=== PATIENT | female | born 1950 | race Caucasian/White ===

== ENCOUNTER 2019-07-04 07:45 | Emergency (ER) | payer MEDICARE, BC, SELFPAY ==
[2019-07-04 07:51] VITALS: BP 113/95; PULSE 111; RESP 18; TEMP 36.5; O2SAT 96
[2019-07-04 08:07] LABS: Bilirubin Negative (Negative); Blood Negative (Negative); Clarity Clear (Clear); Glucose Negative (Negative); Ketones Trace mg/dL (Negative); Leukocyte Esterase Trace (Negative); Nitrite Negative (Negative); Specific Gravity 1.025 (1.005-1.025); Urobilinogen 0.2 EU/dL (Up TO 0.2)
--- NOTE | 2019-07-04 08:13 | W.ED.GENAD ---
Discharge Plan Disposition Patient Disposition: HOME Condition: Good Discharge Details Chief Complaint: Urinary Clinical Impression: Acute UTI Primary Care Provider: Mariza Neal V ED Provider: Nolberto Rivers Home Meds and New Rx's Prescriptions: New cephalexin [Keflex] 500 mg capsule 500 mg PO QID 7 Days Qty: 28 RF: 0 No Action fexofenadine-pseudoephedrine [Shania-D 12 Hour] 60-120 mg Tablet Extended Release 12 Hr 1 tab PO Q12H PRNRF: 0 Prilosec OTC 20 MG tablet,delayed release (DR/EC) 1 tab PO DAILY RF: 0 Discharge Instructions Instructions: Urinary Tract Infection in Women (ED) Additional Instructions: At this time you have evidence of a mild urinary tract infection. Please take antibiotic as directed. Please drink plenty of fluids, and take cranberry supplements. If you notice any worsening of your symptoms, or any new symptoms such as vomiting, diarrhea, fever, chills, shortness of breath, chest pain, numbness, weakness, or fainting , please return immediately to the emergency department for reevaluation. Please follow up with your primary care provider as soon as possible for reassessment and reevaluation. As always, it was a pleasure participating in your medical care today. Referrals: Mariza Neal MD [Primary Care Provider] - Medical Decision Making 69-year-old female with a past medical history of reflux who presents today for evaluation of urinary frequency. Patient states that last day or 2 she has had increasing urinary frequency, very mild burning. She denies any fever or chills. Patient does admit to recently falling yesterday on her buttock, she does have some mild pain and soreness there but in in her back, she has been taking Aleve and ibuprofen this is been resolving the pain. She denies any numbness tingling or weakness. She denies any leg pain. She denies any hematuria or other complaints. She has had urinary tract infections before and states that this feels identical to that. No other modifying factors. She is not taking any antibiotics. Physical exam demonstrates no significant abnormalities. Signs and symptoms inconsistent with cauda equina syndrome and since clinically consistent with mild back and buttock contusion. No indication for imaging at this time. Symptoms in regards to her urinary complaints appear consistent with mild urinary tract infection. No flank or CVA tenderness suggestive of pyelonephritis. No fever or chills. Initially the patient's heart rate was 111 when she first walked in. She states that she has not slept all night and blames it on this. I did offer IV work-up and IV fluids, however the patient declined this, on repeat vital sign assessment moments later her heart rate went down easily below 100. Pending UA at this time. 8:40 AM Patient is urinalysis is returned, positive leukoesterase, white cells mild. Symptoms consistent with mild UTI. Inconsistent with acute appendicitis, or other abnormality. Vital signs have normalized. No indication for further testing or imaging at this time. Patient feeling well. Will give Keflex for UTI. Will give a bottle here and prescription for home use. Discussed red flags which to return. I have extensively reviewed the treatment plan and discharge instructions with the patient. I have addressed all patient concerns at this time. The patient was made aware of what symptoms to monitor for that would warrant a return to the emergency department. Discussed the plan with the patient, they demonstrate verbal understanding and agreement with our assessment and plan at this time. HPI General Date/Time Provider Initiated Documentation: 07/04/19 07:54. HPI Narrative: 69-year-old female with a past medical history of reflux who presents today for evaluation of urinary frequency. Patient states that last day or 2 she has had increasing urinary frequency, very mild burning. She denies any fever or chills. Patient does admit to recently falling yesterday on her buttock, she does have some mild pain and soreness there but in in her back, she has been taking Aleve and ibuprofen this is been resolving the pain. She denies any numbness tingling or weakness. She denies any leg pain. She denies any hematuria or other complaints. She has had urinary tract infections before and states that this feels identical to that. No other modifying factors. She is not taking any antibiotics. Related Data Home Medications Medication Instructions Recorded Confirmed omeprazole magnesium [PriLOSEC Otc] 1 tab PO DAILY 08/06/17 07/04/19 cephalexin [Keflex] 500 mg PO QID 7 Days #28 cap 07/04/19 fexofenadine-pseudoephedrine 1 tab PO Q12H PRN 04/23/20 04/23/20 [Shania-D 12 Hour] Previous Rx's Medication Instructions Recorded cephalexin [Keflex] 500 mg PO QID 7 Days #28 cap 07/04/19 Allergies Allergy/AdvReac Type Severity Reaction Status Date / Time morphine AdvReac Mild Nausea Unverified 07/04/19 08:02 General Stated Complaint: Urinary JOSÉ ANTONIO: 3 Review of Systems All systems reviewed & are unremarkable except as noted in HPI and below PFSH Social History Smoking/Tobacco Use Status: Never Alcohol Intake: never Drug use: Never Do you feel safe at home: Yes Do you feel safe in your relationship?: Yes Exam Narrative Exam Narrative: 1.Const: Well-nourished, Well-developed, appearing stated age 2.Eyes: PERRL, no conjunctival injection, and symmetrical lids. 3.ENT: Atraumatic external nose and ears. Dry MM. Neck: Symmetric, trachea midline, No thyromegaly. 4.CVS: +S1/S2, No murmurs or gallops. Peripheral pulses 2+ and equal in all extremities. Brisk capillary refill in all extremities. 5.RESP: Unlabored respiratory effort. Clear to auscultation bilaterally. No wheezes rales or rhonchi 6.GI: Soft, Nontender/Nondistended, No hepatosplenomegaly. No guarding or rebound. No flank or CVA tenderness. 7.MSK: Normocephalic/Atraumatic, Extremities w/o deformity or ttp No cyanosis or clubbing, Normal movement of all extremities. No midline tenderness to palpation over the CTLS spine. Normal ROM in flexion, extension, side bend, and rotation. Patient has +5 out of 5 strength in the lower extremities in dorsiflexion and plantarflexion, knee flexion and extension, hip flexion and extension. Normal strength for dorsiflexion and plantar flexion of the great toe bilaterally. There is +2 over 2 dorsalis pedis pulses bilaterally. There is normal sensation to the skin with light touch at the foot, knee, and hip. Normal saddle sensation. Good sensation over the deep sural nerve area bilaterally. Rectal exam deferred. Reflexes are +2 over 4 in the patellar reflex bilaterally. +5 out of 5 strength in the medial, ulnar, radial nerve distribution bilaterally in the hands as well as intact light touch sensation to these dermatomes on the hands 8.Skin: Warm, Dry. No rashes or lesions. 9.Neuro: legal activity adjudicator II-XII grossly intact. Sensation grossly intact, no focal neurologic deficits. 10.Psych: (AAO) x3. Appropriate mood and affect Course Vital Signs Vital signs: Vital Signs Temperature 36.5 C 07/04/19 07:51 Pulse 111 H 07/04/19 07:51 Respiratory Rate 18 07/04/19 07:51 Blood Pressure 113/95 H 07/04/19 07:51 Pulse Oximetry 96 07/04/19 07:51 Temperature 36.5 C 07/04/19 07:51 Temperature Source Temporal Artery Scan 07/04/19 07:51 Pulse 111 H 07/04/19 07:51 Respiratory Rate 18 07/04/19 07:51 Respiratory Effort Non-Labored 07/04/19 08:01 Blood Pressure 113/95 H 07/04/19 07:51 Blood Pressure Position Sitting 07/04/19 07:51 Pulse Oximetry 96 07/04/19 07:51 Oxygen Delivery Method Room Air 07/04/19 07:51 Oxygen Flow Rate 0 07/04/19 07:51 Pain Level 6 07/04/19 08:02
[2019-07-04 08:16] VITALS: PULSE 94; O2SAT 96
[2019-07-04 08:24] LABS: Bacteria Rare HPF (Negative); C & S Indicated? Yes; Casts Negative LPF (Negative); Crystals Negative HPF (Negative); Epithelial Cells Rare HPF (Negative); Mucus Negative (Negative); Other Cells Negative (Negative); RBC 0-2 HPF (0-2); WBC 0-2 HPF (0-5)
[2019-07-04] MEDS: Cephalexin 500 MG CAP, 4 CAPS/BTL PO (08:36)
[2019-07-04 08:41] VITALS: PULSE 92; O2SAT 95
== END 2019-07-04 08:44 | disposition home or self-care (01) ==
PROVIDERS: Emergency Provider Student in an Organized Health Care Education/Training Program; PCP Family Medicine
DX: N39.0 Urinary tract infection, site not specified (principal)
CPT/HCPCS: 99283; 81003; 81015; 87086

== ENCOUNTER 2020-06-16 08:40 | Outpatient (REF) | payer MEDICARE, BC, SELFPAY ==
[2020-06-16 13:32] LABS: Anion Gap 12.4 mmol/L (3-11); BUN 19 mg/dL (7-18); CO2 25.6 mmol/L (21.0-32.0); CREATININE 0.9 mg/dL (0.55-1.02); Calcium 8.8 mg/dL (8.5-10.1); Calculated LDL 126 mg/dL (<100); Chloride 104 mmol/L (98-107); Cholesterol 218 mg/dL (<200); Glucose 84 mg/dL (74-106); HDL Cholesterol 70 mg/dL (40-60); Potassium 3.9 mmol/L (3.5-5.1); Sodium 142 mmol/L (136-145); Triglyceride 114 mg/dL (<150)
== END 2020-06-16 08:41 | disposition home or self-care (01) ==
LOC: NCHCN 08:40
PROVIDERS: PCP Family Medicine; Visit Provider Family Medicine
DX: E78.5 Hyperlipidemia, unspecified (principal); E66.9 Obesity, unspecified
CPT/HCPCS: 80048; 80061

== ENCOUNTER 2020-06-22 02:09 | Outpatient (CLI) | payer MEDICARE, BC, SELFPAY ==
--- NOTE | 2020-06-22 12:41 | DI.MAMMO_ITS ---
EXAM: MG MAMMO SCREENING CLINICAL HISTORY: SCREENING, Z12.39. TECHNIQUE: Bilateral full field digital CC and MLO mammographic images were obtained with 3D tomosyn thesis and utilizing computer aided detection (CAD). COMPARISON: Prior mammograms dating back to 2010, the most recent being July 2013 and diagnostic stud y March 2014.. FINDINGS: There has been no significant change in the appearance and distribution of the fibroglandular tissue. There are no new spiculated masses nor malignant appearing microcalcification groups. There is no significant architectural distortion nor skin thickening-retraction. IMPRESSION: No radiographic evidence of malignancy. BI-RADS Category 1 - Negative Breast Density - Category B - Scattered areas of fibroglandular density Breast density Category C or D implies that the patient has dense breast tissue. Dense breast tissue can make it harder to find cancer on a mammogram. Dense breast tissue is also associated with an incr eased risk of breast cancer. This information about the result of the mammogram report was provided to the patient to raise their awareness. Use this report when you speak with the patient about their risks for breast cancer, which includes their family history. At that time, you may recommend additional screening tests (Ultrasoun d or MRI) as these tests may add significant information. A negative radiographic report should not delay biopsy if a dominant or clinically suspicious mass is present. Up to ten percent of cancers are not identified on mammography. A negative report may reinforce clinical impression. Adenosis and dense breasts may obscure an underlying neoplasm. False positive reports average 6 to 10%. Patient will receive a letter notifying them of these results.
== END 2020-06-22 02:29 ==
PROVIDERS: PCP Family Medicine; Visit Provider Family Medicine
DX: Z12.31 Encounter for screening mammogram for malignant neoplasm of breast (principal)
CPT/HCPCS: 77063; 77067

== ENCOUNTER 2021-07-13 06:44 | Inpatient (IN) | payer MEDICARE, BC, SELFPAY ==
[2021-07-13] VITALS (29 sets, daily range): BP systolic 116–174; BP diastolic 48–80; PULSE 50–73; RESP 12–21; TEMP 36.1–37.4; O2SAT 93–100; BMI 33.4
--- NOTE | 2021-07-13 07:15 | DI.US_ITS ---
Exam(s) US ABDOMEN LIMITED EXAM: US ABDOMEN LIMITED CLINICAL HISTORY: burning RUQ pain TECHNIQUE: Ultrasound abdomen performed using standard protocol. COMPARISON: US LEFT BREAST ULTRASOUND from 08/02/2013 FINDINGS: There is no ascites evident. LIVER: There are no hepatic lesions evident nor dilatation of intrahepatic ducts. GALLBLADDER/BILIARY: There are gallstones evident. There is a 1.6 cm gallstone in the gallbladder ne ck and a 3 cm calculus within the body of the gallbladder lumen. There is mild gallbladder wall thic kening. No pericholecystic fluid. Patient was apparently not tender over this area during scanning today The common hepatic duct ismildly dilated, measuring 7-8mm at the level of ariana hepatis. PANCREAS: There is no evidence of pancreatic mass nor dilatation of the pancreatic duct. RIGHT KIDNEY:No evidence of solid mass, calculus, nor hydronephrosis. There is a 9 millimeter benign cyst below the midline kidney noted IMPRESSION: 1. Cholelithiasis. There are gallstones both in the gallbladder lumen as well as in the neck. Mild thickening of the gallbladder wall noted. No pericholecystic fluid. Common hepatic duct is slightl y prominent in size measuring 7-8 millimeters. No obvious calculi seen within the minimally visualiz ed CHD. No obvious dilatation of intrahepatic ducts. 2. No other significant ultrasound findings in the right upper quadrant. 3. There is no ascites. DATA REPOSITORY:
--- NOTE | 2021-07-13 07:20 | W.ED.GENAD ---
Discharge Plan Disposition Patient Disposition: [facility] INPATIENT Condition: Stable Discharge Details Clinical Impression: Cholelithiasis, Biliary colic Admit Date/Time: 07/13/21 14:28 Admit Provider: Opal Osborn Attending Provider: Opal Osborn Primary Care Provider: Florentino Rubi ED Provider: Kirsty Thomas Medical Decision Making <Fabricio Donald MD - Last Filed: 07/13/21 07:23> This is a 71-year-old female who presents from home. She states she has had 2 days of burning right upper quadrant pain that seems somewhat worse with eating. She has had a decreased appetite but no vomiting. She will note some loose stool. On exam patient is afebrile, pleasant and well-appearing. She does demonstrate tenderness overlying epigastrium and right upper quadrant. Differential diagnosis includes pancreatitis, biliary colic, gastritis. Patient had IV access established, screening labs obtained, given fluids, antiemetic, PPI and acetaminophen. Right upper quadrant ultrasound ordered. Patient presented just prior to change of shift, she will be signed out to the oncoming physician Dr. Thomas. Please see her note regarding details of the final impression and disposition. <Kirsty Thomas DO - Last Filed: 07/13/21 18:09> 07/13/21 Dr. Donald This is a 71-year-old female who presents from home. She states she has had 2 days of burning right upper quadrant pain that seems somewhat worse with eating. She has had a decreased appetite but no vomiting. She will note some loose stool. On exam patient is afebrile, pleasant and well-appearing. She does demonstrate tenderness overlying epigastrium and right upper quadrant. Differential diagnosis includes pancreatitis, biliary colic, gastritis. Patient had IV access established, screening labs obtained, given fluids, antiemetic, PPI and acetaminophen. Right upper quadrant ultrasound ordered. Patient presented just prior to change of shift, she will be signed out to the oncoming physician Dr. Thomas. Please see her note regarding details of the final impression and disposition. 07/13/21 Dr. Thomas 0800 --please see Dr. Donald's note for initial presentation, exam and plan. Case endorsed to follow-up on labs and imaging and final disposition. 0930 --labs and imaging reviewed. Normal white blood cell count. Normal electrolytes. Magnesium 3. Lipase within normal limits. Normal bilirubin and liver enzymes. Urinalysis no evidence of infection. Gallbladder US notes: IMPRESSION: 1.? Cholelithiasis.? There are gallstones both in the gallbladder lumen as well as in the neck.? Mild thickening of the gallbladder wall noted.? No pericholecystic fluid.? Common hepatic duct is slightly prominent in size measuring 7-8 millimeters.? No obvious calculi seen within the minimally visualized CHD.? No obvious dilatation of intrahepatic ducts. 2.? No other significant ultrasound findings in the right upper quadrant. 3.? There is no ascites. Attempted to reach Dr. Osborn but she is in a case in the OR. Patient reassessed and she states her pain is improved but only slightly than 7/10 to 5/10. Patient states she would prefer surgery to remove her gallbladder because I am a busy lady and I need to get back to my life. 1030 --discussed with Dr. Osborn and she will contact patient to the operating room. Patient informed of plan. We will give a dose of Dilaudid and Phenergan. Medical Records Medical records reviewed: Yes I reviewed the patient's medical records. Imaging Data Radiologic Study: Radiologist's impression: US ABDOMEN LIMITED CLINICAL HISTORY:? burning RUQ pain TECHNIQUE:? Ultrasound abdomen performed using standard protocol. COMPARISON:? US LEFT BREAST ULTRASOUND from 08/02/2013 FINDINGS: There is no ascites evident. LIVER: There are no hepatic lesions evident nor dilatation of intrahepatic ducts. GALLBLADDER/BILIARY: There are gallstones evident.? There is a 1.6 cm gallstone in the gallbladder neck and a 3 cm calculus within the body of the gallbladder lumen.? There is mild gallbladder wall thickening.? No pericholecystic fluid.? Patient was apparently not tender over this area during scanning today The common hepatic duct ismildly dilated, measuring 7-8mm at the level of ariana hepatis. PANCREAS: There is no evidence of pancreatic mass nor dilatation of the pancreatic duct. RIGHT KIDNEY:No evidence of solid mass, calculus, nor hydronephrosis. There is a 9 millimeter benign cyst below the midline kidney noted IMPRESSION: 1.? Cholelithiasis.? There are gallstones both in the gallbladder lumen as well as in the neck.? Mild thickening of the gallbladder wall noted.? No pericholecystic fluid.? Common hepatic duct is slightly prominent in size measuring 7-8 millimeters.? No obvious calculi seen within the minimally visualized CHD.? No obvious dilatation of intrahepatic ducts. 2.? No other significant ultrasound findings in the right upper quadrant. 3.? There is no ascites. Lab Data Lab results reviewed: Yes I reviewed the patient's lab results. Labs: Laboratory Tests Range/Units 07/13/21 07/13/21 07/13/21 07:19 07:20 07:20 WBC (4.4-10.8) 10^3/uL 8.36 RBC (3.93-5.22) 10^6/uL 4.78 Hgb (11.2-15.7) g/dL 14.6 Hct (36.0-46.0) % 44.9 MCV (80-95) fL 94 MCH (27.0-33.0) pg 30.5 MCHC (32.0-36.0) % 32.5 RDW (11.7-14.6) % 12.5 Plt Count (130-400) 10^3/uL 236 MPV (8.0-11.0) fL 9.6 Immature Gran % 0.2 Neutrophils % 80.3 Lymphocytes % 10.8 Monocytes % 6.2 Eosinophils % 2.0 Basophils % 0.5 Nucleated RBC % (0.0-0.3) % 0.0 Absolute Neutrophils (1.2-6.7) 10^3/uL 6.71 H Absolute Lymphocytes (1.2-3.4) 10^3/uL 0.90 L Absolute Monocytes (0.1-0.8) 10^3/uL 0.52 Absolute Eosinophils (0.0-0.7) 10^3/uL 0.17 Absolute Basophils (0.0-0.2) 10^3/uL 0.04 Sodium Cancelled 141 Potassium Cancelled 4.0 Chloride Cancelled 103 Carbon Dioxide Cancelled 29.6 Anion Gap Cancelled 8.4 BUN Cancelled 12 Creatinine Cancelled 0.8 Estimated GFR/1.73 m2 Cancelled >= 60.00 Glucose Cancelled 108 H Calcium Cancelled 8.9 Magnesium (1.8-2.4) mg/dL 3.0 H Total Bilirubin Cancelled 0.9 AST Cancelled 26 ALT Cancelled 35 Alkaline Phosphatase Cancelled 126 H Total Protein Cancelled 7.2 Albumin Cancelled 3.6 Lipase (73-393) U/L 49 Urine Color (Yellow) Urine Clarity (Clear) Urine pH (5-8) Ur Specific Badger (1.005-1.025) Urine Protein (Negative) mg/dL Urine Ketones (Negative) mg/dL Urine Blood (Negative) Urine Nitrite (Negative) Urine Bilirubin (Negative) Urine Urobilinogen (Up TO 0.2) EU/dL Ur Leukocyte Esterase (Negative) Urine Glucose (Negative) mg/dL Range/Units 07/13/21 09:09 WBC (4.4-10.8) 10^3/uL RBC (3.93-5.22) 10^6/uL Hgb (11.2-15.7) g/dL Hct (36.0-46.0) % MCV (80-95) fL MCH (27.0-33.0) pg MCHC (32.0-36.0) % RDW (11.7-14.6) % Plt Count (130-400) 10^3/uL MPV (8.0-11.0) fL Immature Gran % Neutrophils % Lymphocytes % Monocytes % Eosinophils % Basophils % Nucleated RBC % (0.0-0.3) % Absolute Neutrophils (1.2-6.7) 10^3/uL Absolute Lymphocytes (1.2-3.4) 10^3/uL Absolute Monocytes (0.1-0.8) 10^3/uL Absolute Eosinophils (0.0-0.7) 10^3/uL Absolute Basophils (0.0-0.2) 10^3/uL Sodium Potassium Chloride Carbon Dioxide Anion Gap BUN Creatinine Estimated GFR/1.73 m2 Glucose Calcium Magnesium (1.8-2.4) mg/dL Total Bilirubin AST ALT Alkaline Phosphatase Total Protein Albumin Lipase (73-393) U/L Urine Color (Yellow) Yellow Urine Clarity (Clear) Clear Urine pH (5-8) 7.5 Ur Specific Badger (1.005-1.025) 1.020 Urine Protein (Negative) mg/dL Negative Urine Ketones (Negative) mg/dL 15 H Urine Blood (Negative) Negative Urine Nitrite (Negative) Negative Urine Bilirubin (Negative) Negative Urine Urobilinogen (Up TO 0.2) EU/dL 0.2 Ur Leukocyte Esterase (Negative) Negative Urine Glucose (Negative) mg/dL Negative HPI <Fabricio Donald MD - Last Filed: 07/13/21 07:23> General Mode of arrival: ambulatory. Date/Time Provider Initiated Documentation: 07/13/21 07:11. Limitations to Documentation: no limitations. Information obtained by: patient. History of Present Illness 71 year old F presents to the emergency department with the chief complaint of Burning right upper quadrant pain for 2 days, described as moderate, Quality is described as constant, and is localized to the abdomen. Patient reports radiation to back. Patient started experiencing this day(s) and it has been intermittent. improves with No relieving factors improve symptom(s), Eating worsens symptoms . Patient notes loss of appetite; denies fever/chills, syncope and weakness. Patient did receive the following treatments prior to arrival, none Related Data Home Medications Medication Instructions Recorded Confirmed omeprazole magnesium 20 mg 1 tab PO DAILY 08/06/17 07/13/21 tablet,delayed release (Prilosec OTC) fexofenadine 60 mg-pseudoephedrine 1 tab PO Q12H PRN 07/04/19 07/13/21 ER 120 mg tablet,ext.release,12 hr (Shania-D 12 Hour) Allergies Allergy/AdvReac Type Severity Reaction Status Date / Time morphine AdvReac Mild Nausea Unverified 07/13/21 06:55 General Stated Complaint: Abd Prob JOSÉ ANTONIO: 3 Review of Systems <Fabricio Donald MD - Last Filed: 07/13/21 07:23> Narrative: No recent travel, no known sick contacts, patient has recently been well. Reports some loose stool. 8 systems were reviewed and otherwise negative PFSH <Fabricio Donald MD - Last Filed: 07/13/21 07:23> All Active Problems (Updated 07/13/21 @ 16:59 by Opal Osborn DO) Acute cholecystitis due to biliary calculus (Acute) Cholelithiasis (Acute) Biliary colic (Acute) Medical History (Updated 07/13/21 @ 16:59 by Opal Osborn DO) GERD (gastroesophageal reflux disease) Surgical History (Updated 07/13/21 @ 11:46 by Ana Wilcox RN) History of tubal ligation Hx of colonoscopy Social History Smoking/Tobacco Use Status: Never Smoking risk assessment performed?: Yes Alcohol Intake: never Drug use: Never Substance use type: does not use Do you feel safe at home: Yes Do you feel safe in your relationship?: Yes Exam <Fabricio Donald MD - Last Filed: 07/13/21 07:23> Narrative Exam Narrative: GEN: awake, alert, oriented 3. Pleasant, well groomed, interactive. HEAD: Normocephalic, atraumatic ENT: Mucous membranes moist, External ear exam unremarkable EYES: PERRL, EOMI NECK: Full ROM, no JOSE EDUARDO, no menigismus CHEST/RESP: Nontender, clear to auscultation bilateral, no wheeze/rhonchi/rales CARDIOVASCULAR: RRR, no murmur, rub celina. 2+ Rad pulse bilateral ABDOMEN: Soft, tender in the right upper quadrant to palpation without rebound or guarding, no mass. +Bowel sounds EXT: Full ROM, no edema, no rash Neuro: Grossly normal neurologic exam, conversant, interactive. Psych: Speech fluent, thoughts congruent, affect normal Course <Fabricio Donald MD - Last Filed: 07/13/21 07:23> Vital Signs Vital signs: Vital Signs Temperature 36.6 C 07/13/21 06:48 Pulse 60 07/13/21 06:48 Respiratory Rate 18 07/13/21 06:48 Blood Pressure 142/66 H 07/13/21 06:48 Pulse Oximetry 96 07/13/21 06:48 Temperature 36.6 C 07/13/21 06:48 Temperature Source Skin 07/13/21 06:48 Pulse 60 07/13/21 06:48 Respiratory Rate 18 07/13/21 06:48 Respiratory Effort 07/13/21 06:53 Blood Pressure 142/66 H 07/13/21 06:48 Blood Pressure Position Supine 07/13/21 06:48 Pulse Oximetry 96 07/13/21 06:48 Oxygen Delivery Method Room Air 07/13/21 06:48 Oxygen Flow Rate 0 07/13/21 06:48 Pain Level 7 07/13/21 06:48 Sign Out <Fabricio Donald MD - Last Filed: 07/13/21 07:23> Sign Out Data: Sign Out Comment: Mayra. Followup labs/US Last updated by Fabricio Donald MD at 07/13/21 07:34
[2021-07-13 07:36] LABS: Abs Immature Grans 0.02 10^3/uL (0.0-0.06); Absolute Basophil Count 0.04 10^3/uL (0.0-0.2); Absolute Eosinophil Count 0.17 10^3/uL (0.0-0.7); Absolute Monocyte Count 0.52 10^3/uL (0.1-0.8); Absolute Neutrophil Count 6.71 10^3/uL (1.2-6.7); Basophils % 0.5; HCT 44.9 % (36.0-46.0); HGB 14.6 g/dL (11.2-15.7); Immature Grans % 0.2; Lymphocytes % 10.8; MCH 30.5 pg (27.0-33.0); MCHC 32.5 % (32.0-36.0); MCV 94 fL (80-95); MPV 9.6 fL (8.0-11.0); Monocytes % 6.2; Neutrophils % 80.3; Platelet Count 236 10^3/uL (130-400); RBC 4.78 10^6/uL (3.93-5.22); RDW 12.5 % (11.7-14.6); RDW-SD 43.4 fL; WBC 8.36 10^3/uL (4.4-10.8)
[2021-07-13] MEDS: Pantoprazole 40 MG VIAL IVP (07:40)
[2021-07-13] MEDS: Normal Saline 1,000 ML 125 ML IV (07:40)
[2021-07-13] MEDS: ACETAMINOPHEN 1,000 MG/100 ML BTL 400 MG IVPB (07:40)
[2021-07-13] MEDS: Normal Saline Flush 10 ML SYR IVP ×3 (07:40→23:02)
[2021-07-13] MEDS: Ondansetron 4 MG/2 ML VIAL IVP (07:41)
[2021-07-13 07:49] LABS: ALT 35 U/L (14-59); AST 26 U/L (15-37); Albumin 3.6 g/dL (3.4-5.0); Alkaline Phosphatase 126 U/L (46-116); Anion Gap 8.4 mmol/L (3-11); BUN 12 mg/dL (7-18); Bilirubin, Total 0.9 mg/dL (0.2-1.0); CO2 29.6 mmol/L (21.0-32.0); CREATININE 0.8 mg/dL (0.55-1.02); Calcium 8.9 mg/dL (8.5-10.1); Chloride 103 mmol/L (98-107); Glucose 108 mg/dL (74-106); Lipase 49 U/L (73-393); Sodium 141 mmol/L (136-145); Total Protein 7.2 g/dL (6.4-8.2)
[2021-07-13 09:19] LABS: Bilirubin Negative (Negative); Blood Negative (Negative); Clarity Clear (Clear); Glucose Negative (Negative); Ketones 15 mg/dL (Negative); Leukocyte Esterase Negative (Negative); Nitrite Negative (Negative); Urobilinogen 0.2 EU/dL (Up TO 0.2); pH 7.5 (5-8)
[2021-07-13] MEDS: HYDROmorphone 2 MG/ML VIAL IVP (10:55)
--- NOTE | 2021-07-13 10:58 | W.PREOPHP ---
Documented by User: DEO Sidhu 07/13/21 11:25 Assessment and Plan Assessment and plan (1) Cholelithiasis: Status: Acute Assessment and plan: A// A healthy and pleasant 71 y/o female with a benign medical history presented with RUQ pain and burning. Cholelithiasis confirmed with abdominal US, gallsontes noted in the gallbladder neck and body. -Discussed Laproscopic Cholecystectomy procedure. Discussed possible complications of the procedure to include bleeding, pain, injury to the common bile duct or right hepatic duct, bile leak, subhepatic abscess, the need to convert to open cholecystectomy, sore throat, aspiration and adverse reaction to the medications. Questions were answered to patient?s satisfaction. Patient verbalized understanding and wishes to proceed with the procedure. No guarantees were implied or given. P// Laproscopic Cholecystectomy with Dr. Osborn (2) Biliary colic: Status: Acute History of Present Illness History of Present Illness Chief Complaint: Cholithiasis Narrative: 71 y/o female with a history of GERD presented to the ER with complaints of 2 day history of RUQ pain, that increases with eating. She reports a 2 month history of fecal urgency and diarrhea. Patient reports that she has also been having heart burn. She reports her only surgical history includes a screening Colonoscopy and tubal ligation. She denies any use of marijuana or any other recreational or illegal drugs. Denies chest pain, palpitations, dyspnea or dyspnea with exertion. She walks and bikes daily. Denies personal or family history of adverse reactions to anesthesia. Denies any history of MA, stroke, seizures, bleeding or clotting disorders. Denies having any implanted metal. Denies any history of chemotherapy or radiation. PFSH All Active Problems (Updated 07/13/21 @ 11:45 by Ana Wilcox RN) Cholelithiasis (Acute) Biliary colic (Acute) Medical History (Updated 07/13/21 @ 11:45 by Ana Wilcox RN) GERD (gastroesophageal reflux disease) Surgical History (Updated 07/13/21 @ 11:46 by Ana Wilcox RN) History of tubal ligation Hx of colonoscopy Social History Smoking/Tobacco Use Status: Never Smoking risk assessment performed?: Yes Alcohol Intake: never Drug use: Never Do you feel safe at home: Yes Do you feel safe in your relationship?: Yes Meds Allergies and Home Medications Allergies Allergy/AdvReac Type Severity Reaction Status Date / Time morphine AdvReac Mild Nausea Unverified 07/13/21 06:55 Home Medications Medication Instructions Recorded Confirmed Type omeprazole magnesium 20 mg 1 tab PO DAILY 08/06/17 07/13/21 History tablet,delayed release (Prilosec OTC) fexofenadine 60 mg-pseudoephedrine 1 tab PO Q12H PRN 07/04/19 07/13/21 History ER 120 mg tablet,ext.release,12 hr (Shania-D 12 Hour) Exam Const General: cooperative, healthy appearing and comfortable Orientation: alert and oriented x3 Resp Effort & Inspection: normal respiratory effort, no audible wheezes and no cough Auscultation: clear to auscultation bilaterally GI Inspection: normal to inspection Palpation: soft, no guarding and tender in the RUQ Auscultation: normal bowel sounds Skin General skin exam: no rashes or lesions noted Results Labs Result diagrams: 07/13/21 07:20 07/13/21 07:20 Labs: Laboratory Results - last 24 hr 07/13/21 07/13/21 07/13/21 07:19 07:20 07:20 WBC 8.36 RBC 4.78 Hgb 14.6 Hct 44.9 MCV 94 MCH 30.5 MCHC 32.5 RDW 12.5 Plt Count 236 MPV 9.6 Immature Gran % 0.2 Neutrophils % 80.3 Lymphocytes % 10.8 Monocytes % 6.2 Eosinophils % 2.0 Basophils % 0.5 Nucleated RBC % 0.0 Absolute Neutrophils 6.71 H Absolute Lymphocytes 0.90 L Absolute Monocytes 0.52 Absolute Eosinophils 0.17 Absolute Basophils 0.04 Sodium Cancelled 141 Potassium Cancelled 4.0 Chloride Cancelled 103 Carbon Dioxide Cancelled 29.6 Anion Gap Cancelled 8.4 BUN Cancelled 12 Creatinine Cancelled 0.8 Estimated GFR/1.73 m2 Cancelled >= 60.00 Glucose Cancelled 108 H Calcium Cancelled 8.9 Magnesium 3.0 H Total Bilirubin Cancelled 0.9 AST Cancelled 26 ALT Cancelled 35 Alkaline Phosphatase Cancelled 126 H Total Protein Cancelled 7.2 Albumin Cancelled 3.6 Lipase 49 Urine Color Urine Clarity Urine pH Ur Specific [place] Urine Protein Urine Ketones Urine Blood Urine Nitrite Urine Bilirubin Urine Urobilinogen Ur Leukocyte Esterase Urine Glucose 07/13/21 09:09 WBC RBC Hgb Hct MCV MCH MCHC RDW Plt Count MPV Immature Gran % Neutrophils % Lymphocytes % Monocytes % Eosinophils % Basophils % Nucleated RBC % Absolute Neutrophils Absolute Lymphocytes Absolute Monocytes Absolute Eosinophils Absolute Basophils Sodium Potassium Chloride Carbon Dioxide Anion Gap BUN Creatinine Estimated GFR/1.73 m2 Glucose Calcium Magnesium Total Bilirubin AST ALT Alkaline Phosphatase Total Protein Albumin Lipase Urine Color Yellow Urine Clarity Clear Urine pH 7.5 Ur Specific [place] 1.020 Urine Protein Negative Urine Ketones 15 H Urine Blood Negative Urine Nitrite Negative Urine Bilirubin Negative Urine Urobilinogen 0.2 Ur Leukocyte Esterase Negative Urine Glucose Negative Last Vital Signs Temp 36.6 C 07/13/21 06:48 Pulse 53 L 07/13/21 09:32 Resp 18 07/13/21 06:48 BP 159/63 H 07/13/21 09:32 Pulse Ox 99 07/13/21 10:10 Documented by User: Opal Osborn DO 07/13/21 12:07 Assessment and Plan Assessment and plan (1) Cholelithiasis: Status: Acute Assessment and plan: A// A healthy and pleasant 71 y/o female with a benign medical history presented with RUQ pain and burning. Cholelithiasis confirmed with abdominal US, gallsontes noted in the gallbladder neck and body. -Discussed Laproscopic Cholecystectomy procedure. Discussed possible complications of the procedure to include bleeding, pain, injury to the common bile duct or right hepatic duct, bile leak, subhepatic abscess, the need to convert to open cholecystectomy, sore throat, aspiration and adverse reaction to the medications. Questions were answered to patient?s satisfaction. Patient verbalized understanding and wishes to proceed with the procedure. No guarantees were implied or given. P// Laproscopic Cholecystectomy with Dr. Osborn Patient seen and examined and agree with above. So Risks also include pneumonia, anesthesia, and other unpredictable complication. She also does have a history of significant nausea and vomiting with narcotics. We did discuss that gallbladder surgery is associated with nausea. She may end up having to spend the night because of postop nausea and vomiting. (2) Biliary colic: Status: Acute PFSH All Active Problems (Updated 07/13/21 @ 11:45 by Ana Wilcox RN) Cholelithiasis (Acute) Biliary colic (Acute) Medical History (Updated 07/13/21 @ 11:45 by Ana Wilcox RN) GERD (gastroesophageal reflux disease) Surgical History (Updated 07/13/21 @ 11:46 by Ana Wilcox RN) History of tubal ligation Hx of colonoscopy Social History Smoking/Tobacco Use Status: Never Smoking risk assessment performed?: Yes Alcohol Intake: never Drug use: Never Do you feel safe at home: Yes Do you feel safe in your relationship?: Yes Meds Allergies and Home Medications Allergies Allergy/AdvReac Type Severity Reaction Status Date / Time morphine AdvReac Mild Nausea Unverified 07/13/21 06:55 Home Medications Medication Instructions Recorded Confirmed Type omeprazole magnesium 20 mg 1 tab PO DAILY 08/06/17 07/13/21 History tablet,delayed release (Prilosec OTC) fexofenadine 60 mg-pseudoephedrine 1 tab PO Q12H PRN 07/04/19 07/13/21 History ER 120 mg tablet,ext.release,12 hr (Shania-D 12 Hour) Results Labs Result diagrams: 07/13/21 07:20 07/13/21 07:20
[2021-07-13 11:02] LABS: Source Nasal/Nares
[2021-07-13 11:44] LABS: COVID-19 PCR Negative (Negative)
--- NOTE | 2021-07-13 11:57 | W.ANESPRE ---
General Info Date of Service Date Performed: 07/13/21 Height: 4 ft 10 in Weight: 72.575 kg Body Mass Index (BMI): 33.4 Surgical Procedure: Operation Date: 07/13/21 12:10 Proposed Procedure Side Surgeon p Cholecystectomy Laparoscopic Opal Osborn, Meds Allergies and Home Medications Allergies Allergy/AdvReac Type Severity Reaction Status Date / Time morphine AdvReac Mild Nausea Unverified 07/13/21 06:55 Home Medication Medication Instructions Recorded omeprazole magnesium 20 mg 1 tab PO DAILY 08/06/17 tablet,delayed release (Prilosec OTC) fexofenadine 60 mg-pseudoephedrine 1 tab PO Q12H PRN 07/04/19 ER 120 mg tablet,ext.release,12 hr (Shania-D 12 Hour) Current Visit Medications: Current Medications Generic Name Dose Route Start Last Admin Trade Name Freq PRN Reason Stop Dose Admin Sodium Chloride 1,000 mls @ 125 mls/hr 07/13/21 07:30 07/13/21 07:40 Saline 1000ml Bag IV 125 mls/hr INFUSION KAM Administration Ringer's Solution 1,000 mls @ 80 mls/hr 07/13/21 12:00 IV INFUSION KAM IV Miscellaneous Supplies 1 each 07/13/21 07:30 Iv Access IV DIRECTED KAM Sodium Chloride 0 ml 07/13/21 07:18 07/13/21 07:40 Normal Saline Flush 10 Ml Syr IVP 20 ml PRN PRN Administration PFSH Active Problems Active Problems: Problem Status Onset Code Cholelithiasis K80.20 Biliary colic K80.50 Medical History Medical History (Updated 07/13/21 @ 11:45 by Ana Wilcox RN) GERD (gastroesophageal reflux disease) Surgical History Surgical History (Updated 07/13/21 @ 11:46 by Ana Wilcox RN) History of tubal ligation Hx of colonoscopy Tobacco Smoking/Tobacco Use Status: Never Alcohol Alcohol Intake: never Substance Use Substance use: Never Vital Signs and Lab Results Vital Signs Most Recent Vital Signs in EMR: Most Recent Vital Signs Temp Pulse Resp BP Pulse Ox 36.6 C 56 L 18 151/65 H 99 07/13/21 06:48 07/13/21 11:02 07/13/21 06:48 07/13/21 11:07/13/21 10:10 Lab Results Result Diagrams: 07/13/21 07:07/13/21 07:20 Blood Type / Crossmatch: No Data to Display Complete Blood Count: White Blood Count 8.36 10^3/uL (4.4-10.8) 07/13/21 07:20 07/13/21 Red Blood Count 4.78 10^6/uL (3.93-5.22) 07/13/21 07:20 07/13/21 Hemoglobin 14.6 g/dL (11.2-15.7) 07/13/21 07:20 07/13/21 Hematocrit 44.9 % (36.0-46.0) 07/13/21 07:07/13/21 Platelet Count 236 10^3/uL (130-400) 07/13/21 07:20 07/13/21 Complete Metabolic Panel: Sodium Level 141 mmol/L (136-145) 07/13/21 07:20 07/13/21 Potassium Level 4.0 mmol/L (3.5-5.1) 07/13/21 07:20 07/13/21 Chloride Level 103 mmol/L (98-107) 07/13/21 07:07/13/21 Carbon Dioxide Level 29.6 mmol/L (21.0-32.0) 07/13/21 07:20 07/13/21 Blood Urea Nitrogen 12 mg/dL (7-18) 07/13/21 07:20 07/13/21 Creatinine 0.8 mg/dL (0.55-1.02) 07/13/21 07:07/13/21 Estimated GFR/1.73 m2 >= 60.00 (mL/min/1.73m2) 07/13/21 07:20 07/13/21 Magnesium Level 3.0 mg/dL (1.8-2.4) H 07/13/21 07:20 07/13/21 Calcium Level 8.9 mg/dL (8.5-10.1) 07/13/21 07:20 07/13/21 Albumin 3.6 g/dL (3.4-5.0) 07/13/21 07:20 07/13/21 Glucose Level 108 mg/dL (74-106) H 07/13/21 07:20 07/13/21 Liver Function Panel: Alanine Aminotransferase (ALT/SGPT) 35 U/L (14-59) 07/13/21 07:20 07/13/21 Aspartate Amino Transf (AST/SGOT) 26 U/L (15-37) 07/13/21 07:20 07/13/21 Coagulation Panel: No Data to Display Cardiac Panel: No Data to Display Arterial Blood Gas: No Data to Display Venous Blood Gas: No Data to Display Pancreas Panel: Lipase 49 U/L (73-393) 07/13/21 07:20 07/13/21 Thyroid Panel: No Data to Display Infectious Disease: Coronavirus (COVID-19)(PCR) Negative (Negative) 07/13/21 10:54 07/13/21 Coronavirus 2019 Source Nasal/Nares 07/13/21 10:54 07/13/21 Blood Cultures: No Data to Display Toxicology Panel: No Data to Display Anesthesia Assessment and Plan Anesthesia History Personal History: No History of Anesthesia Complications Family History: No Family History of Anesthesia Complications Exercise Tolerance Exercise Tolerance: Metabolic Equivalents>4 Cardiac & Pulmonary Exam Cardiac Exam: Normal S1/S2 Heart Sounds Pulmonary Exam: Clear Bilateral Breath Sounds Implantable Cardiac Device Does patient have a Pacemaker or an ICD?: No Airway Exam Known Difficult Airway: No Mallampati Class: 2 Mouth Opening: Narrow (< 3cm) Thyromental Distance: Greater than 3 cm Neck Range of Motion: Full ROM Neck Circumference: Normal Teeth Condition: Normal Dentition ASA Classification ASA Score: ASA 2 Emergency Case?: No NPO Status NPO Status: NPO Clears >2 hours, Solids >8 hours Anesthesia Plan Resuscitation Status: Full Code Anesthesia Technique: General Anesthesia Airway Planned: Endotracheal Tube Monitors Used: Standard Monitors Preoperative Comments:: 71 yo female for lap jed. presented to the ED with abd pain, has received prometh 25 mg IVBP, hydromorphone 0.2 mg, ondans 4 mg, protonix 40 mg. Sig PMHx: GERD, never smoker,
[2021-07-13] MEDS: Lactated Ringers 1,000 ML 80 ML IV (12:17)
[2021-07-13] MEDS: Gabapentin 300 MG CAP 600 MG PO (12:49)
[2021-07-13] MEDS: PIPERACILLIN/TAZO 3.375 GM in Normal Saline 50 ML IVPB ×2 (12:53→17:57)
--- NOTE | 2021-07-13 14:05 | GB_PTH ---
PATIENT: Diane Ba LOC: U#:[id number] AGE/SX: 71/F ROOM: [facility] RE07/13/[address]: Opal Osborn : 1950 BED: A DIS: 07/14/2021 SPEC #: [id number] RECD: 07/13/21 15:46 STATUS: MARCIE REQ #: [id number] RAFAEL: 07/13/21 14:[address]: Opal Osborn DEPT: Surgical Specimen RECD BY: Rolan Winn ENTERED: 07/13/21 15:49 SP TYPE: GB OTHR DR: Florentino Rubi Tissues: 1 - GALLBLADDER Procedures: GROSS AND MICRO LEVEL 3 Comments: [id number]
[2021-07-13] MEDS: Bupivacaine 0.25% Pres-Free 30 ML VIAL (14:13)
--- NOTE | 2021-07-13 14:45 | ROE_ITS ---
Date of service: 07/13/21 Time of Service: 14:45 Operative Note Operative Note DATE OF PROCEDURE: 07/13/21 PRE-OP DIAGNOSIS: acute jed w/ stones POST-OP DIAGNOSIS: same PROCEDURE: lap jed SURGEON: Opal Dove CLINICAL ACCOUNT EXECUTIVE: Yazmin Frazier ANESTHESIA TYPE: Local By Surgeon and General LMA/ETT Refer to Anesthesia Record ESTIMATED BLOOD LOSS: 20 PATHOLOGY: none sent COMPLICATIONS: None Patient was transported to: PACU Patient's condition: stable Procedure Description: INDICATIONS: The pt came regarding acute cholecystitis, cholelithiasis. Informed consent was obtained, explaining risks and benefits of the procedure including but not limited to bleeding, infection, pneumonia, blood clots, possible damage to bowel, bladder, blood vessels, bile ducts, possible open procedure, complications of general anesthesia and other unforetold complications. PROCEDURE: The patient agrees and is brought to the operative room suite and placed in supine position. Anesthesia was administered per the Department of Anesthesia. The patient did receive IV antibiotics. NG tube and Bang catheter are placed. The patient was prepped and draped in the usual sterile fashion using DuraPrep scrub solution. Pause for the cause was done. 20 mL of 1% buffered lidocaine was used for local anesthetization. A stab incision was made in the umbilicus and the Verres inserted. Drop test was positive and insufflation was begun. When 15 mm of pressure was noted on the monitor, the Veress was removed and #5 port inserted. The camera was inserted through the port and shows no damage to underlying structures. The GB wall is thicked and erythematous. There is omentum adhered up to the GB. A 10 mm port was then placed in the epigastric position under direct visualization following creation of local field blocks as well as two 5 mm ports in the right upper quadrant. The omental adhesions are taken down with blunt dissection. The gallbladder fundus was grasped and retracted towards the right shoulder. Infundibulum was grasped and retracted laterally. The wall is edematous. A small rent was torn in the gallbladder wall. Clear white bile was then suctioned and removed from the gallbladder. Hepat-duodenal ligament is entered. The ligament is very edematous. However he does peel down very easily. The cystic duct and artery are dissected out and the most inferior portion of the gallbladder plate is removed from the liver and the critical view of safety was obtained after clearing away all fatty material. Endo Clips were placed across the duct and artery and these structures are divided. The remainder of the gallbladder was excised from the liver bed. The gallbladder is very edematous. And the liver bed and the dissection sites are very friable and bleeds readily. The gallbladder was placed in a bag and brought out. Examination of the gallbladder shows indeed the cystic duct and artery to have been divided. The remainder of the abdomen was copiously irrigated with a liter of saline. All saline is removed. Floseal was placed in the liver bed. There is no bleeding or bile leakage from the liver bed or the clips sites. An EndoClose needle was used to close the 10 mm port site with an 0 Vicryl. All ports and instruments are removed. SPonge and needle counts are correct. Pneumoperitoneum is evacuated and the port sites are monitored to make sure there is no bleeding at the time of desufflation. The epigastric port site is instilled w/ 10cc Experel at the time of closure. ?Port sites are irrigated and the skin is closed with 4-0 Monocryl in a running subcuticular fashion. Skin glue sterile dressings are applied. The patient tolerated the procedure well without complications, transferred to the recovery room in stable condition. OPAL DOVE, DO ?
--- NOTE | 2021-07-13 15:16 | W.ANESPOSTOP ---
Postoperative Evaluation Date, Time and Location Date Performed: 07/13/21 Time Performed: 15:16 Patient Location: PACU Vital Signs Most Recent Imported Vital Signs: Most Recent Vital Signs Temp Pulse Resp BP Pulse Ox 36.4 C L 52 L 17 166/67 H 96 07/13/21 15:05 07/13/21 15:05 07/13/21 15:05 07/13/21 15:05 07/13/21 15:05 Pain Score Most Recent Pain Score: Most Recent Pain Score Pain Level [Bilateral Mid 7 07/13/21 12:05 Posterior Back] Pain Level [Right Abdomen] 1 07/13/21 12:04 Pain Level 0 07/13/21 15:05 Assessment Mental Status: Arousable with meaningful communication Airway and Respiratory Function: Patent airway with normal (patient baseline) respiratory exam Cardiovascular Function: Hemodynamically Stable Hydration Status: Adequately Hydrated Nausea & Vomiting: No Nausea or Vomiting Pain: Pain is tolerable per patient Peripheral Nerve Block: Patient did not receive a nerve block
[2021-07-13] MEDS: fentaNYL 100 MCG/2 ML VIAL IVP (15:49)
[2021-07-13] MEDS: Lactated Ringers 1,000 ML 100 ML IV ×2 (16:24→20:42)
--- NOTE | 2021-07-13 16:58 | W.PM.PROGNOT ---
Date of Service Date of service: 07/13/21 Time of Service: 16:58 Assessment and Plan Assessment and plan (1) Acute cholecystitis due to biliary calculus: Status: Acute Assessment and plan: The patient is doing well post-op. Their pain is well controlled. They are having no nausea or vomiting. The pt is not having any chest pain or SOB, productive cough; no calf pain or swelling. The pt is making good urine. The pt pain is adequately controlled. The case was discussed with nursing and patient?s progress reviewed. All of the pt's home medications were addressed and adjusted accordingly for their oral intact status. HEENT: no jaundice. no eye pain/drainage/redness/swelling. Mild sore throat Cardio- NSR no chest pain, BP stable. Pulm: no sob or productive cough. no hemoptysis Incision- clean/dry. Dressing intact no excessive bleeding or drainage I discussed with the patient and/or there family about the findings in surgery and the pt's progress. We reviewed expectations for progress in the hospital; what the pt could expect for recovery time and length of stay. We discussed the importance of walking and pulmonary toilet to avoid blood clots and pneumonia. Continue current plans for pulmonary toilet, GI and DVT prophylaxis. We shall continue the current plan for pain management as it is at an appropriate level, and working well for the pt. Appropriate measures will be taken for constipation prevention, and this was also reviewed with the pt. The wound care plan was reviewed with nursing as well. pt is admitted and get on IV abx overnight. She does have an acute cholecysitis. I would send home on 5 days augmentin. see orders ? Objective Last Vital Signs Temp 36.5 C 07/13/21 16:27 Pulse 56 L 07/13/21 16:27 Resp 16 07/13/21 16:27 BP 148/73 H 07/13/21 16:27 Pulse Ox 94 07/13/21 16:27 Laboratory Results - last 24 hr 07/13/21 07/13/21 07/13/21 07:19 07:20 07:20 WBC 8.36 RBC 4.78 Hgb 14.6 Hct 44.9 MCV 94 MCH 30.5 MCHC 32.5 RDW 12.5 Plt Count 236 MPV 9.6 Immature Gran % 0.2 Neutrophils % 80.3 Lymphocytes % 10.8 Monocytes % 6.2 Eosinophils % 2.0 Basophils % 0.5 Nucleated RBC % 0.0 Absolute Neutrophils 6.71 H Absolute Lymphocytes 0.90 L Absolute Monocytes 0.52 Absolute Eosinophils 0.17 Absolute Basophils 0.04 Sodium Cancelled 141 Potassium Cancelled 4.0 Chloride Cancelled 103 Carbon Dioxide Cancelled 29.6 Anion Gap Cancelled 8.4 BUN Cancelled 12 Creatinine Cancelled 0.8 Estimated GFR/1.73 m2 Cancelled >= 60.00 Glucose Cancelled 108 H Calcium Cancelled 8.9 Magnesium 3.0 H Total Bilirubin Cancelled 0.9 AST Cancelled 26 ALT Cancelled 35 Alkaline Phosphatase Cancelled 126 H Total Protein Cancelled 7.2 Albumin Cancelled 3.6 Lipase 49 Urine Color Urine Clarity Urine pH Ur Specific [place] Urine Protein Urine Ketones Urine Blood Urine Nitrite Urine Bilirubin Urine Urobilinogen Ur Leukocyte Esterase Urine Glucose COVID-19 Source SARS-CoV-2 (PCR) 07/13/21 07/13/21 09:09 10:54 WBC RBC Hgb Hct MCV MCH MCHC RDW Plt Count MPV Immature Gran % Neutrophils % Lymphocytes % Monocytes % Eosinophils % Basophils % Nucleated RBC % Absolute Neutrophils Absolute Lymphocytes Absolute Monocytes Absolute Eosinophils Absolute Basophils Sodium Potassium Chloride Carbon Dioxide Anion Gap BUN Creatinine Estimated GFR/1.73 m2 Glucose Calcium Magnesium Total Bilirubin AST ALT Alkaline Phosphatase Total Protein Albumin Lipase Urine Color Yellow Urine Clarity Clear Urine pH 7.5 Ur Specific [place] 1.020 Urine Protein Negative Urine Ketones 15 H Urine Blood Negative Urine Nitrite Negative Urine Bilirubin Negative Urine Urobilinogen 0.2 Ur Leukocyte Esterase Negative Urine Glucose Negative COVID-19 Source Nasal/Nares SARS-CoV-2 (PCR) Negative
[2021-07-13] MEDS: Ketorolac 15 MG/ML VIAL IVP ×2 (17:34→23:01)
[2021-07-13] MEDS: Acetaminophen 500 MG TAB 1000 MG PO (21:15)
[2021-07-14] MEDS: PIPERACILLIN/TAZO 3.375 GM in Normal Saline 50 ML IVPB ×3 (00:36→12:02)
[2021-07-14] MEDS: Normal Saline Flush 10 ML SYR IVP ×5 (00:37→12:02)
[2021-07-14] MEDS: Ketorolac 15 MG/ML VIAL IVP ×2 (04:58→10:40)
[2021-07-14] MEDS: Acetaminophen 500 MG TAB 1000 MG PO ×2 (06:17→13:27)
[2021-07-14 07:23] VITALS: BP 141/65; PULSE 64; RESP 18; TEMP 36.7; O2SAT 94
--- NOTE | 2021-07-14 08:07 | W.PM.PROGNOT ---
Date of Service Date of service: 07/14/21 Time of Service: 08:07 Assessment and Plan Assessment and plan (1) Acute cholecystitis due to biliary calculus: Status: Acute Assessment and plan: POD #1 s/p laparoscopic cholecystectomy Pain is currently well controlled DIET- Fat restricted diet, will start with clears and advance as tolerated. (+) Flatus, No BM Strongly encouraged ambulation and activity OOB Awaiting morning labs, which are currently pending If tolerating diet and continues to do well this morning, possible d/c home later today on PO antibiotics Subjective Subjective Interval history since last seen: Patient reports she did well over night, she is having some abdominal discomfort when trying to sit up. She has been applying ice to her incisions sites which has helped with her discomfort. She denies having had a BM, but she has been passing flatus. Exam Const General: cooperative, healthy appearing and comfortable Orientation: alert and oriented x3 Resp Effort & Inspection: normal respiratory effort, no audible wheezes and no cough GI Inspection: normal to inspection Palpation: soft, no guarding and nontender Auscultation: normal bowel sounds Other: Incisions are well approximated. Skin a fix in place. No swelling or induration noted around sites. Objective Last Vital Signs Temp 36.7 C 07/14/21 07:23 Pulse 64 07/14/21 07:23 Resp 18 07/14/21 07:23 BP 141/65 H 07/14/21 07:23 Pulse Ox 94 07/14/21 07:23 Laboratory Results - last 24 hr 07/13/21 07/13/21 09:09 10:54 Urine Color Yellow Urine Clarity Clear Urine pH 7.5 Ur Specific [place] 1.020 Urine Protein Negative Urine Ketones 15 H Urine Blood Negative Urine Nitrite Negative Urine Bilirubin Negative Urine Urobilinogen 0.2 Ur Leukocyte Esterase Negative Urine Glucose Negative COVID-19 Source Nasal/Nares SARS-CoV-2 (PCR) Negative
[2021-07-14 08:10] LABS: Abs Immature Grans 0.05 10^3/uL (0.0-0.06); Absolute Basophil Count 0.01 10^3/uL (0.0-0.2); Basophils % 0.1; HCT 40.9 % (36.0-46.0); HGB 13.1 g/dL (11.2-15.7); Immature Grans % 0.4; Lymphocytes % 5.6; MCH 30.8 pg (27.0-33.0); MCV 96 fL (80-95); MPV 9.9 fL (8.0-11.0); Monocytes % 5.1; Neutrophils % 88.8; Platelet Count 222 10^3/uL (130-400); RBC 4.26 10^6/uL (3.93-5.22); RDW 12.4 % (11.7-14.6); RDW-SD 43.5 fL; WBC 12.45 10^3/uL (4.4-10.8)
[2021-07-14 08:13] LABS: Absolute Monocyte Count 0.63 10^3/uL (0.1-0.8)
[2021-07-14 08:14] LABS: Absolute Neutrophil Count 11.06 10^3/uL (1.2-6.7)
[2021-07-14] MEDS: Pantoprazole 40 MG VIAL IVP (08:15)
[2021-07-14] MEDS: Enoxaparin 40 MG/0.4 ML SYR SC (08:16)
--- NOTE | 2021-07-14 12:33 | W.PM.DS.N ---
Date of service: 07/14/21 Time of Service: 12:33 DS: Diagnosis Discharge Diagnosis (1) Acute cholecystitis due to biliary calculus: Status: Acute Discharge Plan Disposition Patient Disposition: HOME Condition: Stable Discharge Details Reason For Visit: Acute jed w/stones Admit Date/Time: 07/13/21 14:28 Admit Provider: Opal Osborn Attending Provider: Opal Osborn Primary Care Provider: Florentino Rubi chato Hospital Course Hospital Course: 71 y/o female with a history of GERD presented to the ER with a 2-3 day history of RUQ pain and a several week history of diarrhea and fecal urgency. ABD ultrasound showed gallstones. Patient under went laproscopic cholecystectomy with Dr. Osborn. She was started on post-op diet clear liquids which was advanced as tolerated. The patient was tolerating a soft regular diet without any complaints of abdominal pain, nausea or vomiting. Pain was well controlled over night with ice, Toradol and tylenol. She was ambulating in the hallway and passing flatus. D/C Home She will need to complete a 5 day course of Augmentin. She will need to follow up with the surgical office in 2 weeks Home Meds and New Rx's Prescriptions: New amoxicillin-pot clavulanate 875-125 mg tablet 1 tab PO BID 5 Days Qty: 10 0RF Continued fexofenadine-pseudoephedrine [Shania-D 12 Hour] 60-120 mg Tablet Extended Release 12 Hr 1 tab PO Q12H PRN0RF Label Comments: pt reports she hasnt taken this in years omeprazole magnesium [Prilosec OTC] 20 MG tablet,delayed release (DR/EC) 1 tab PO DAILY 0RF Discharge Instructions Instructions: Low Fat Diet (DC), Laparoscopic Cholecystectomy (DC) Referrals: Opal Osborn, [OSTEOPATHIC DOCTOR] - Activity:: Activity as Tolerated Equipment/Supplies:: No Equipment Needed Diet:: Low Fat Diet DS: Summary Time Spent with Patient providing and/or coordinating discharge services: Less than 30 minutes Status at Discharge Functional status at discharge: independent ambulation Overall status at discharge: patient is back to baseline Mental Status: mental status grossly normal Speech and Movement: speech and movement normal Mood: congruent mood Affect: normal affect Exam Const General: cooperative, healthy appearing and comfortable Orientation: alert and oriented x3 Resp Effort & Inspection: normal respiratory effort, no audible wheezes and no cough GI Inspection: normal to inspection Palpation: soft, no guarding and tender Auscultation: normal bowel sounds Psych Mental Status: mental status grossly normal Speech and Movement: speech and movement normal Mood: congruent mood Affect: normal affect DS: Data Vitals/I&O Vitals and I&O: Vital Signs Temperature 36.7 C 07/14/21 07:23 Temperature Source Tympanic 07/14/21 07:23 Pulse 64 07/14/21 07:23 Pulse Rhythm Regular 07/14/21 08:28 Respiratory Rate 18 07/14/21 07:23 Respiratory Effort 07/14/21 08:28 Respiratory Depth Normal 07/14/21 08:28 Respiratory Pattern Normal 07/14/21 08:28 Blood Pressure 141/65 H 07/14/21 07:23 Blood Pressure Mean 83 07/13/21 11:02 Blood Pressure Position Supine 07/13/21 06:48 Pulse Oximetry 94 07/14/21 07:23 Respiratory End-tidal CO2 39 07/13/21 16:00 Oxygen Delivery Method Room Air 07/14/21 08:28 Oxygen Flow Rate 0 07/14/21 08:28 Pain Level 0 07/14/21 11:40 Intake & Output 07/13/21 07/14/21 07/14/21 18:59 06:59 18:59 Intake Total 1561.334 / 2876.334 1265.000 / 2876.334 530 / 530 Output Total 750 / 1375 625 / 1375 Balance 811.334 / 1501.334 640.000 / 1501.334 530 / 530 Weight 72.575 kg Intake: IV 1561.334 / 2876.334 1265.000 / 2876.334 50 / 50 Oral 480 / 480 Output: Urine 750 / 1375 625 / 1375 Other: Urine Color Yellow Yellow Urine Appearance Clear Clear Comment Patient report feeling very mild discomfort in her urethra during voiding. void in toilet Emesis Description None Voiding Methods Bedside Commode Bedside Commode Data Completed and Pending Labs on day of discharge: Labs from last 24 hours 07/14/21 07/14/21 08:05 08:05 WBC 12.45 H RBC 4.26 Hgb 13.1 Hct 40.9 MCV 96 H MCH 30.8 MCHC 32.0 RDW 12.4 Plt Count 222 MPV 9.9 Immature Gran % 0.4 Neutrophils % 88.8 Lymphocytes % 5.6 Monocytes % 5.1 Eosinophils % 0.0 Basophils % 0.1 Nucleated RBC % 0.0 Absolute Neutrophils 11.06 H Absolute Lymphocytes 0.70 L Absolute Monocytes 0.63 Absolute Eosinophils 0.00 Absolute Basophils 0.01 C-Reactive Protein 1.60 H PFSH All Active Problems (Updated 07/13/21 @ 16:59 by Opal Osborn DO) Acute cholecystitis due to biliary calculus (Acute) Cholelithiasis (Acute) Biliary colic (Acute) Medical History (Updated 07/13/21 @ 16:59 by Opal Osborn DO) GERD (gastroesophageal reflux disease) Surgical History (Updated 07/13/21 @ 11:46 by Ana Wilcox RN) History of tubal ligation Hx of colonoscopy Social History Smoking/Tobacco Use Status: Never Smoking risk assessment performed?: Yes Alcohol Intake: never Drug use: Never Substance use type: does not use Do you feel safe at home: Yes Do you feel safe in your relationship?: Yes
--- NOTE | 2021-07-14 16:59 | INITIAL_ITS ---
- If Service Date Differs Date of service: 07/14/21 Time of Service: 16:59 Care Management Initial Assess REASON FOR HOSPITALIZATION:: acute jed w/ stones PAST MEDICAL HISTORY/PAST SURGICAL HISTORY:: All Active Problems. Cholelithiasis (Acute). Biliary colic (Acute). Medical History. GERD (gastroesophageal reflux disease). Surgical History. History of tubal ligation. Hx of colonoscopy PREVIOUS FUNCTIONAL STATUS/SOCIAL/FAMILY SUPPORTS:: Diane lives in [place] with her , Sanjiv. They have two sons who are supportive. She is retired, and enjoys gardening in the nice weather. She is very active and independent at [facility] [employer] [facility] [place]. CURRENT FUNCTIONAL STATUS:: Diane was lying in bed when CM met with her. She was pleasant and engaged in conversation. She stated that she had surgery yesterday, and per provider, she would likely be discharge today if she is able to tolerate a diet. She is comfortable with this plan, and does not anticipate requiring any services upon discharge. CM will continue to follow. ADVANCE DIRECTIVES:: Not on file. Has patient been provided with info about the portal/API?: Yes Did the patient sign up for the portal?: No CODE STATUS:: Full Code INSURANCE COVERAGE / FINANCIAL ISSUES:: [facility]/ BS CURRENT HOME/COMMUNITY SERVICES/EQUIPMENT:: No current services or equipment. PRIMARY CARE PHYSICIAN:: Florentino Rubi POTENTIAL DISCHARGE NEEDS:: Follow up appointments. PATIENT/FAMILY EDUCATION NEEDS:: Review discharge instructions regarding activity levels and medications, discussion of self care needs including ask me three. ANTICIPATED BARRIERS TO DISCHARGE:: None identified. TRANSPORTATION:: Via private vehicle with her . PLAN:: Diane will return home with no new services. Her will drive her home via private vehicle. She will follow up with her PCP and discharge plan of care. CM will continue to follow.
--- NOTE | 2021-07-14 17:10 | PDOC.CMDIS ---
- If Service Date Differs Date of service: 07/14/21 Time of Service: 17:10 LACE Index Scoring Tool - Questions: Length of Stay (in days): 1 Acuity (Admit via E.D.?): Yes E.D. Visits: 1 - Answers: Total Score: 5 Risk of Readmission: Low Risk Care Management Discharge Reason for Hospitalization: acute jed w/ stones Discharge Plan: Diane will return home with no new services. Her will drive her home via private vehicle. She will follow up with her PCP and discharge plan of care. She is happy to be returning home. Patient/Family Education Needs: Review discharge instructions regarding activity levels and medications, discussion of self care needs including ask me three.
== END 2021-07-14 14:19 | disposition home or self-care (01) | DRG 419 ==
LOC: ER 11:09 → SUR 11:42 → MS 16:23
PROVIDERS: Emergency Medicine; Admitting Provider Surgery; Emergency Provider Physician Assistant; PCP Family Medicine; Visit Provider Surgery
PROC: 0FT44ZZ Resection of Gallbladder, Percutaneous Endoscopic Approach (ICD-10-PCS; CPT 47562; principal; 2021-07-13 12:00)
DX: K80.00 Calculus of gallbladder with acute cholecystitis without obstruction (principal); K82.8 Other specified diseases of gallbladder; K21.9 Gastro-esophageal reflux disease without esophagitis; R12 Heartburn; R19.7 Diarrhea, unspecified; R15.2 Fecal urgency
CPT/HCPCS: 47562; 36415; 80053; 83690; 87635; 96361; 96365; 96375; 99222; 99285; J1650; 76705; 81003; 83735; 85025; 86140; 88304; J0131; J1100; J1885; J2001; J2405; J2543; J2704; J3010

== ENCOUNTER → 2021-07-26 13:16 | Outpatient (BNVA) | payer MEDICARE, BC, SELFPAY | PROVIDERS: PCP Family Medicine; Referring Provider Family Medicine; Visit Provider Surgery | DX: Z48.815 Encounter for surgical aftercare following surgery on the digestive system (principal) ==

== ENCOUNTER 2022-06-10 10:53 | Outpatient (REF) | payer MEDICARE, BC, SELFPAY ==
[2022-06-10 15:54] LABS: ALT 21 U/L (14-59); AST 16 U/L (15-37); Albumin 3.7 g/dL (3.4-5.0); Alkaline Phosphatase 130 U/L (46-116); Anion Gap 14.5 mmol/L (3-11); BUN 18 mg/dL (7-18); Bilirubin, Total 0.5 mg/dL (0.2-1.0); CO2 28.5 mmol/L (21.0-32.0); CREATININE 0.7 mg/dL (0.55-1.02); Calcium 9.1 mg/dL (8.5-10.1); Calculated LDL 156 mg/dL (<100); Chloride 104 mmol/L (98-107); Cholesterol 232 mg/dL (<200); Estimated GFR 91.83 (mL/min/1.73m2); Glucose 83 mg/dL (74-106); HDL Cholesterol 61 mg/dL (40-60); Potassium 5.3 mmol/L (3.5-5.1); Sodium 147 mmol/L (136-145); Total Protein 6.6 g/dL (6.4-8.2); Triglyceride 78 mg/dL (<150)
== END 2022-06-10 10:54 | disposition home or self-care (01) ==
LOC: NCHCN 10:53
PROVIDERS: PCP Family Medicine; Visit Provider Family Medicine
DX: E78.5 Hyperlipidemia, unspecified (principal); E66.9 Obesity, unspecified
CPT/HCPCS: 80053; 80061

== ENCOUNTER 2022-06-17 15:45 | Outpatient (REF) | payer MEDICARE, BC, SELFPAY ==
[2022-06-17 15:36] LABS: ALT 47 U/L (14-59); AST 26 U/L (15-37); Albumin 3.8 g/dL (3.4-5.0); Alkaline Phosphatase 146 U/L (46-116); Anion Gap 7.5 mmol/L (3-11); BUN 18 mg/dL (7-18); Bilirubin, Total 0.5 mg/dL (0.2-1.0); CO2 29.5 mmol/L (21.0-32.0); CREATININE 0.8 mg/dL (0.55-1.02); Calcium 9.1 mg/dL (8.5-10.1); Chloride 105 mmol/L (98-107); Estimated GFR 78.24 (mL/min/1.73m2); Glucose 95 mg/dL (74-106); Potassium 4.4 mmol/L (3.5-5.1); Sodium 142 mmol/L (136-145); Total Protein 6.8 g/dL (6.4-8.2)
== END 2022-06-17 15:46 | disposition home or self-care (01) ==
LOC: NCHCN 15:45
PROVIDERS: PCP Family Medicine; Visit Provider Family Medicine
DX: R03.0 Elevated blood-pressure reading, without diagnosis of hypertension (principal)
CPT/HCPCS: 80053

== ENCOUNTER 2022-06-23 00:43 | Outpatient (CLI) | payer MEDICARE, BC, SELFPAY ==
--- NOTE | 2022-06-23 | DI.MAMMO_ITS ---
Exam(s) MAMMO SCREENING EXAM: MAMMO SCREENING CLINICAL HISTORY: SCREENING, Z12.39 TECHNIQUE: Mammograms were interpreted according to the usual protocol including computer analysis w [employer] CAD system, tomosynthesis and C-view imaging. COMPARISON: 2013 through 2020 FINDINGS: The breasts are composed of scattered fibroglandular densities, Breast Density category B. No suspicious masses or suspicious microcalcifications are seen. No skin thickening or abnormal axillary lymph nodes are seen. There has been no significant change from prior exams. IMPRESSION: BI-RADS Category 1, Negative mammogram Yearly screening mammography is recommended. Breast Density - Category B, scattered fibroglandular densities. A negative radiographic report should not delay biopsy if a dominant or clinically suspicious mass is present. Up to ten percent of cancers are not identified on mammography. A negative report may reinforce clinical impression. Adenosis and dense breasts may obscure an underlying neoplasm. False positive reports average 6 to 10%. Patient will receive a letter notifying them of these results.
== END 2022-06-23 01:03 ==
LOC: DI 00:44
PROVIDERS: PCP Family Medicine; Visit Provider Family Medicine
DX: Z12.31 Encounter for screening mammogram for malignant neoplasm of breast (principal)
CPT/HCPCS: 77063; 77067

== ENCOUNTER 2022-10-10 10:55 | Outpatient (CLI) | payer MEDICARE, BC, SELFPAY ==
--- NOTE | 2022-10-10 10:39 | DI.RAD_ITS ---
Exam(s) XR ANKLE LT COMPLETE EXAM: XR ANKLE LT COMPLETE CLINICAL HISTORY: RIGHT ANKLE PAIN TECHNIQUE: 2D digital imaging was performed. Three views. COMPARISON: No exams were available for comparison FINDINGS: BONES: No acute fracture is present. No bony destructive lesion is seen. JOINTS:The ankle mortise is normally aligned. No significant degenerative changes. SOFT TISSUE: Normal. IMPRESSION: Unremarkable radiographs of the left ankle. DATA REPOSITORY: RADIATION DOSE DELIVERED:
== END 2022-10-10 10:56 | disposition home or self-care (01) ==
LOC: DIORS 10:55
PROVIDERS: PCP Family Medicine; Referring Provider Family Medicine; Visit Provider Student in an Organized Health Care Education/Training Program
DX: S86.312A Strain of muscle(s) and tendon(s) of peroneal muscle group at lower leg level, left leg, initial encounter (principal); X58.XXXA Exposure to other specified factors, initial encounter
CPT/HCPCS: 99214; 73610

== ENCOUNTER → 2022-10-31 01:18 | Outpatient (CLI) | payer MEDICARE, BC, SELFPAY ==
--- NOTE | 2022-10-31 07:15 | DI.CT_ITS ---
Exam(s) CT LOWER EXTREMITY LT WO EXAM: CT LOWER EXTREMITY LT WO CLINICAL HISTORY: eval calcaneus for bony abnormality on xray,lt ankle instability,strain,. TECHNIQUE: Imaging Protocol: Axial computed tomography images with coronal and sagittal reformatted images were created and reviewed. COMPARISON: CR XR ANKLE LT COMPLETE from 10/10/2022 FINDINGS: Bones: The osseous structures and articular surfaces are intact. Bony alignment is satisfactory. N o cellulitic or osteomyelitic changes are identified. There is no evidence of joint space narrowing or cystic degeneration seen. There is a lobulated bony protuberance along the lateral aspect of the b jame of the calcaneus. It communicates with the marrow of the calcaneus. The cortex appears intact. No associated soft tissue calcification or periosteal reaction is seen. No suspicious lytic or scle rotic lesions are seen in the bones. Soft Tissues: There is appear to be mild thickening of the adjacent peroneal tendons. Some fluid is seen within or adjacent to the tendon sheath. IMPRESSION: 1. Lobulated bony protuberance along the lateral aspect of the body of the calcaneus as described abo ve. Primary diagnostic concern is for a benign lesion such as an osteochondroma. Neoplastic process cannot be entirely excluded. 2. Mild thickening and fluid within or adjacent to the peroneal tendons which may represent a tenosyn ovitis. MRI may be considered for further evaluation. RADIATION DOSE DELIVERED: 180.78mGy.cm Total DLP 180.78mGy.cm Total DLP DATA REPOSITORY: All CT scans at this facility are submitted to the National Radiology Data Registry (NRDR) Dose Index Registry (DIR) with the [employer] (ACR). RADIATION OPTIMIZATION: All CT scans at this facility use at least one of these dose optimization te chniques: automated exposure control; mA and/or kV adjustment per patient size (includes targeted exa ms where dose is matched to clinical indication); or iterative reconstruction.
--- NOTE | 2022-10-31 10:20 | DI.MRI_ITS ---
Exam(s) MR LOWER EXTREMITY LT WO EXAM: MR LOWER EXTREMITY LT WO CLINICAL HISTORY: eval lat ankle ligs, joint health and tendons,lt ankle instability,strain TECHNIQUE: Multiplanar multisequence MRI was performed without intravenous contrast. COMPARISON: CR XR ANKLE LT COMPLETE from 10/10/[address] LOWER EXTREMITY LT WO from 10/31/2022 FINDINGS: BONES/JOINTS: No fracture or contusion pattern. There is an exophytic lobulated bone lesion protrudin g from the lateral aspect of the calcaneus. It communicates with the marrow from the calcaneus. It shows normal signal in the T1 weighted images. There is very mild edema seen in the subcortical bone adjacent to the peroneal tendons. This may be reactive. No cartilaginous cap is identified. There is no associated soft tissue mass. The talar dome is smooth. The ankle mortise is maintained. No miki int effusion is present. LIGAMENTS: The tibiofibular and calcaneofibular ligaments are intact. The talofibular ligaments are i ntact. The deltoid ligament is intact. The syndesmosis is unremarkable. Sinus tarsi is normal. MUSCULOTENDINOUS STRUCTURES: Achilles tendon: Unremarkable. Plantar fascia: Unremarkable. Anterior Extensor tendons: Unremarkable. Posterior Tibialis: Unremarkable. Flexor Digitorum longus: Unremarkable. Flexor Hallucis longus: Unremarkable. Peroneus longus: There is a small amount of fluid seen within the tendon sheath. There is some thick ening and intermediate signal seen within the peroneus longus tendon. Peroneus brevis:There is a small amount of fluid seen in the peroneus brevis sheath. The tendon is u nremarkable. SOFT TISSUES: Unremarkable. OTHER FINDINGS: None. IMPRESSION: 1. Exophytic lesion protruding from the lateral aspect of the calcaneus. Its appearance is suggestiv e of a benign lesion such as an osteochondroma. No associated soft tissue mass or fracture is seen. No cartilaginous cap or inflamed bursa is seen. 2. Findings suggestive of a partial tear of the peroneus longus tendon. Synovitis of the peroneus lo ngus and brevis tendons is noted. 3. No evidence of an ankle ligament tear. DATA REPOSITORY:
== END ==
PROVIDERS: PCP Family Medicine; Visit Provider Student in an Organized Health Care Education/Training Program
DX: M25.372 Other instability, left ankle (principal); S86.312A Strain of muscle(s) and tendon(s) of peroneal muscle group at lower leg level, left leg, initial encounter; X58.XXXA Exposure to other specified factors, initial encounter
CPT/HCPCS: 73700; 73718

== ENCOUNTER → 2022-12-05 10:52 | Outpatient (BNVA) | payer MEDICARE, BC, SELFPAY | PROVIDERS: PCP Family Medicine; Referring Provider Family Medicine; Visit Provider Student in an Organized Health Care Education/Training Program | DX: S86.312A Strain of muscle(s) and tendon(s) of peroneal muscle group at lower leg level, left leg, initial encounter (principal); X58.XXXA Exposure to other specified factors, initial encounter; M89.8X7 Other specified disorders of bone, ankle and foot | CPT/HCPCS: 99214 ==

== ENCOUNTER 2022-12-21 17:07 | Observation (INO) | payer MEDICARE, BC, SELFPAY ==
[2022-12-21] VITALS (21 sets, daily range): BP systolic 109–147; BP diastolic 45–98; PULSE 50–75; RESP 12–17; TEMP 36.1–36.5; O2SAT 93–100; BMI 28.0
--- NOTE | 2022-12-21 07:13 | W.ANESPRE ---
General Info Date of Service Date Performed: 12/21/22 Height: 4 ft 10 in Weight: 60.781 kg Body Mass Index (BMI): 28.0 Surgical Procedure: Operation Date: 12/21/22 13:10 Proposed Procedure Side Surgeon p Foot Ostectomy w/ Peroneal Tendon Repair Right Anatoliy Valle MD Meds Allergies and Home Medications Allergies Allergy/AdvReac Type Severity Reaction Status Date / Time meperidine [From Demerol] Allergy Unknown Verified 12/21/22 10:43 morphine AdvReac Mild Nausea Unverified 12/21/22 10:43 Home Medication Medication Instructions Recorded multivitamin 1 tab PO DAILY 12/05/22 acetaminophen 500 mg tablet 1,000 mg PO TID #90 tabs 12/21/22 diphenhydramine HCl 25 mg capsule 50 mg PO QHS PRN 12/21/22 (Benadryl) hydrocodone 5 mg-acetaminophen 325 1 tab PO Q4H PRN pain #14 tabs 12/21/22 mg tablet ibuprofen 600 mg tablet 600 mg PO TID PRN #90 tabs 12/21/22 Current Visit Medications: Current Medications Generic Name Dose Route Start Last Admin Trade Name Freq PRN Reason Stop Dose Admin Ringer's Solution 1,000 mls @ 80 mls/hr 12/21/22 06:00 IV 01/19/23 23:59 INFUSION KAM Cefazolin Sodium/Dextrose 2 gm in 50 mls @ 100 mls/hr 12/21/22 06:00 Ancef Duplex IVPB 01/19/23 23:59 PREOP KAM IV Miscellaneous Supplies 1 each 12/21/22 06:00 Iv Access IV 01/19/23 23:59 DIRECTED KAM Sodium Chloride 0 ml 12/21/22 06:00 Normal Saline Flush 10 Ml Syr IV 01/19/23 23:59 PRN PRN Sodium Chloride 0 ml 12/21/22 06:00 Normal Saline 10 Ml Vial IJ 01/19/23 23:59 DIRECTED PRN Sterile Water 0 ml 12/21/22 06:00 Water,Injection,Sterile 10 Ml Vial IJ 01/19/23 23:59 DIRECTED PRN PFSH Active Problems Active Problems: Problem Status Onset Code Left ankle instability M25.372 Strain of left peroneal muscle or tendon S86.312A Exostosis of left calcaneus M89.8X7 Medical History Medical History Acute cholecystitis due to biliary calculus Biliary colic Cholelithiasis GERD (gastroesophageal reflux disease) Hyperlipidemia Osteopenia Tremor Surgical History Surgical History (Updated 12/19/22 @ 11:07 by Jimi Choe) History of tubal ligation Hx of cholecystectomy Hx of colonoscopy Tobacco Smoking/Tobacco Use Status: Never Alcohol Alcohol Intake: never Substance Use Substance use: Never Substance use type: does not use Vital Signs and Lab Results Vital Signs Most Recent Vital Signs in EMR: Temp Pulse Resp BP Pulse Ox 36.1 C L 75 16 129/98 H 96 12/21/22 10:54 12/21/22 10:54 12/21/22 10:54 12/21/22 10:54 12/21/22 10:54 Lab Results Blood Type / Crossmatch: No Data to Display Complete Blood Count: No Data to Display Complete Metabolic Panel: No Data to Display Liver Function Panel: No Data to Display Coagulation Panel: No Data to Display Cardiac Panel: No Data to Display Arterial Blood Gas: No Data to Display Venous Blood Gas: No Data to Display Pancreas Panel: No Data to Display Thyroid Panel: No Data to Display Infectious Disease: No Data to Display Blood Cultures: No Data to Display Toxicology Panel: No Data to Display Imaging and Studies Imaging and Studies Study information below may be from another EMR and interpreted by another provider. Please see original notes in EMR for more complete details. EKG Summary: 07/17: sinus. Anesthesia Assessment and Plan Anesthesia History Personal History: No History of Anesthesia Complications Family History: No Family History of Anesthesia Complications Exercise Tolerance Exercise Tolerance: Metabolic Equivalents>4 Cardiac & Pulmonary Exam Cardiac Exam: Normal S1/S2 Heart Sounds Pulmonary Exam: Clear Bilateral Breath Sounds Implantable Cardiac Device Does patient have a Pacemaker or an ICD?: No Airway Exam Known Difficult Airway: No Mallampati Class: 2 Mouth Opening: Narrow (< 3cm) Thyromental Distance: Greater than 3 cm Neck Range of Motion: Full ROM Neck Circumference: Normal Teeth Condition: Normal Dentition ASA Classification ASA Score: ASA 2 Emergency Case?: No NPO Status NPO Status: NPO Clears >2 hours, Solids >8 hours Anesthesia Plan Resuscitation Status: Full Code Anesthesia Technique: General Anesthesia Airway Planned: Endotracheal Tube Monitors Used: Standard Monitors Preoperative Comments:: 71 yo female right foot ostectomy with peroneal tendon repair. Sig PMHx: GERD (non since GB removal), never smoker, Previous Anes: - lap jed, mac 3 grade 1, easy mask.
--- NOTE | 2022-12-21 09:32 | PDOC.DSDIS_ITS ---
Date of service: 12/21/22 Time of Service: 09:32 Discharge Plan Disposition Patient Disposition: Home Condition: Good Discharge Details Reason For Visit: L peroneal tendon repair Attending Provider: Anatoliy Valle Primary Care Provider: Eulalia Cortez Home Meds and New Rx's Prescriptions: New hydrocodone-acetaminophen 5-325 mg tablet 1 tab PO Q4H PRN (Reason: pain) Qty: 14 0RF acetaminophen 500 mg tablet 1,000 mg PO TID Qty: 90 3RF ibuprofen 600 mg tablet 600 mg PO TID PRNQty: 90 3RF Continued multivitamin Tablet 1 tab PO DAILY Discharge Instructions Additional Instructions: Peroneal Tendon Repair Discharge Instructions Activity: You are NON WEIGHT BEARING. You should keep the leg elevated as much as possible. You may wiggle your toes and move your hip and knee. Dressings: You should keep your splint clean and dry. Do NOT get wet or dirty. If you have issues with your splint, please call the office at [phone] or the hospital after hours. Medications: - You should take Tylenol and Ibuprofen around the clock for baseline pain. - You have been prescribed a stronger narcotic for breakthrough pain. - You should take a Baby Aspirin (81mg) twice a day for blood clot prevention. Follow-up: 2 weeks Referrals: Anatoliy Valle MD [ [facility] STAFF PHYSICIAN] - Equipment/Supplies: Non-Weight Bearing Crutches Activity:: Elevate Remove Dressings/Wound Care:: Do Not Remove Shower/Bathe:: Cover Diet:: As Tolerated Discharge Orders Discharge Orders: Discharge Order (Routine); Ordered 12/21/22 Ordered By: Elie Barbosa
[2022-12-21] MEDS: Acetaminophen 500 MG TAB 1000 MG PO (11:06)
[2022-12-21] MEDS: Celecoxib 200 MG CAP 400 MG PO (11:07)
[2022-12-21] MEDS: Lactated Ringers 1,000 ML 80 ML IV ×2 (11:15→16:07)
[2022-12-21] MEDS: ceFAZolin 2 GM/50 ML BAG IVPB (12:47)
[2022-12-21] MEDS: EPINEPHrine 10 MG/10 ML ML (13:10)
[2022-12-21] MEDS: Bupivacaine 0.25% Pres-Free 30 ML VIAL (13:10)
--- NOTE | 2022-12-21 14:07 | ROE_ITS ---
Date of service: 12/21/22 Time of Service: 13:00 Operative Note Operative Note DATE OF PROCEDURE: 12/21/22 PRE-OP DIAGNOSIS: Left Calcaneal Exostosis, Peroneal Tendon Tear and Synovitis POST-OP DIAGNOSIS: same PROCEDURE: Left Calcaneus Ostectomy with Peroneal Longus Debridement and Tenosynovectomy SURGEON: Anatoliy Valle ASSISTANT MERCHANDISE MANAGER: Elie Barbosa ANESTHESIA TYPE: General LMA/ETT Refer to Anesthesia Record ESTIMATED BLOOD LOSS: 20 PATHOLOGY: none sent TOURNIQUET TIME: 0 COMPLICATIONS: None Patient was transported to: PACU Indications: Diane is a 72 year old active female who has had persistent pain about the lateral left hindfoot/ankle. Clinical evaluation and x-rays demonstrated an exostosis of the lateral calcaneus with tearing of the peroneal tendon. She has failed a host of conservative options but continues to have pain and difficulty with shoe wear. Therefore, I offered operative intervention in the form of bony prominence resection, and peroneal tendon repair as indicated. I reviewed the risk of the procedure to include bleeding, infection, pain, stiffness, damage to nerves and vessels, weakness,rerupture or retear, wound healing complications. Despite these risk, she elected to proceed. Findings: There was a prominent exostosis over the lateral calcaneus which had somewhat encased the peroneal longus tendon with the peroneal brevis tendon being dorsal to this bony prominence. The exostosis was resected and a tenosynovectomy was performed of the peroneal longus and brevis tendons. There was a tear of the peroneal longus but it was quite tattered and these torn fibers were resected back to healthy tissue. Procedure Description: Diane was greeted in the preoperative holding area. Identity was confirmed the correct side was identified and marked. Consent was reviewed the patient and s igned. History of physical was updated. She was taken to the operating room. A general anesthetic was administered and then the patient was placed into the semilateral position. Gel pads were placed underneath the down leg and a pillow was placed between the right and left knees. No tourniquet was used. Prophylactic antibiotics in the form of cefazolin were given. A timeout was performed for safe surgery. The proposed surgical site was then injected with 0.25% bupivacaine. A longitudinal incision was made from just posterior to the tip of the lateral malleolus down towards the fifth metatarsal. The skin was incised sharply. The sural nerve and its branches were identified and protected. The peroneal longus tendon sheath was entered. The peroneal longus tendon was mobilized. However, is unable to find the peroneal brevis tendon at this time. Working more proximally is able to trace it from the lateral malleolus and follow its course anterior or dorsal to the calcaneal exostosis. The peroneal brevis and longus were then retracted dorsally which allowed access to this bony mass from the lateral calcaneus. Utilizing an osteotome as well as a rongeur I then remove the bulk of the mass make sure to smooth edges. This was most of the lateral wall of the calcaneus. These edges were smoothed with a rasp and with a rongeur. I then applied bone wax to the cut edge of the lateral calcaneus to prevent any regrowth of the bone. This was manually pressurized into the surface and EXOS was removed. The wound and the bony surfaces were then thoroughly irrigated. Remainder of 0.25% bupivacaine was injected to the lateral aspect of the calcaneus. I then inspected the peroneal tendons. The peroneal brevis tendon had some mild synovitis which was resected. However, there is no tearing of the peroneal brevis tendon. The peroneal longus tendon had significant abrasion and frayed tissues over its deep surface. These were inspected but there were no splits or complete tears noted of the peroneal longus tendon. I debrided the damaged edges of the tendon back to stable bases. A tenosynovectomy was performed of the peroneal longus tendon. The wound was once again irrigated. The inferior retinaculum was loosely reapproximated over the peroneal tendons. The deep tissues were closed with a 3-0 Vicryl and the skin was closed with a running 4-0 Monocryl, reinforced with skin glue, covered with gauze and Webril followed by a short leg splint. Diane was then transferred back to the hospital stretcher in a stable condition. The procedure was tolerated well and the patient was transferred back to the PACU in stable condition.
--- NOTE | 2022-12-21 14:33 | W.ANESPOSTOP ---
Postoperative Evaluation Date, Time and Location Date Performed: 12/21/22 Time Performed: 14:33 Patient Location: PACU Vital Signs Most Recent Imported Vital Signs: Most Recent Vital Signs Temp Pulse Resp BP Pulse Ox 36.1 C L 75 16 129/98 H 96 12/21/22 10:54 12/21/22 10:54 12/21/22 10:54 12/21/22 10:54 12/21/22 10:54 Pain Score Most Recent Pain Score: Most Recent Pain Score Pain Level 3 12/21/22 10:54 Assessment Mental Status: Awake (Alert & Oriented to Patient Baseline) Airway and Respiratory Function: Patent airway with normal (patient baseline) respiratory exam Cardiovascular Function: Hemodynamically Stable Hydration Status: Adequately Hydrated Nausea & Vomiting: No Nausea or Vomiting Pain: Pain is tolerable per patient (getting hydromorphone now. ) Peripheral Nerve Block: Patient did not receive a nerve block
[2022-12-21] MEDS: Normal Saline 10 ML VIAL IJ (14:35)
[2022-12-21] MEDS: HYDROmorphone 2 MG/ML SYR IVP (14:35)
[2022-12-21] MEDS: Ondansetron 4 MG/2 ML VIAL IVP ×2 (15:20→21:03)
[2022-12-21] MEDS: diphenhydrAMINE 50 MG/ML VIAL 12.5 MG IVP (16:05)
[2022-12-21] MEDS: Droperidol 5 MG/2 ML VIAL (16:22)
[2022-12-21] MEDS: ceFAZolin 1 GM/50 ML BAG IVPB (20:52)
[2022-12-21] MEDS: Ketorolac 15 MG/ML VIAL IVP (21:02)
[2022-12-22] MEDS: Acetaminophen 325 MG TAB 650 MG PO (02:42)
[2022-12-22] MEDS: ceFAZolin 1 GM/50 ML BAG IVPB ×2 (03:17→11:43)
[2022-12-22] MEDS: Dexamethasone 4 MG TAB PO (08:42)
[2022-12-22 09:31] VITALS: BP 114/69; PULSE 60; RESP 19; TEMP 36.8; O2SAT 93
--- NOTE | 2022-12-22 09:51 | W.PM.DS.N ---
Date of service: 12/22/22 Time of Service: 09:51 DS: Diagnosis Discharge Diagnosis (1) Exostosis of left calcaneus: Status: Acute (2) Post-operative nausea and vomiting: Status: Acute Discharge Plan Disposition Patient Disposition: Home Condition: Good Discharge Details Reason For Visit: L peroneal tendon repair Admit Date/Time: 12/21/22 17:07 Admit Provider: Anatoliy Valle Attending Provider: Anatoliy Valle Primary Care Provider: Eulalia Cortez Hospital Course Hospital Course: Diane was admitted to the medical/surgical floor following the procedure due to post-operative nausea and vomiting. The surgery was tolerated well without any notable medical, surgical, or anesthetic complications except the PONV. Mobilization began postoperatively. She was voiding spontaneously. Vitals were stable. PONV improved with time and medications. Physical therapy worked with the patient and was cleared for discharge home. No acute medical issues. Pain was controlled on oral regimen. Home Meds and New Rx's Prescriptions: New hydrocodone-acetaminophen 5-325 mg tablet 1 tab PO Q4H PRN (Reason: pain) Qty: 14 0RF acetaminophen 500 mg tablet 1,000 mg PO TID Qty: 90 3RF ibuprofen 600 mg tablet 600 mg PO TID PRNQty: 90 3RF ondansetron 4 mg tablet,disintegrating 4 mg PO Q8H PRNQty: 6 0RF Continued multivitamin Tablet 1 tab PO DAILY No Action diphenhydramine HCl [Benadryl] 25 mg Capsule 50 mg PO QHS PRN Discharge Instructions Additional Instructions: Peroneal Tendon Discharge Instructions Activity: You are TOUCHDOWN WEIGHT BEARING. You should keep the leg elevated as much as possible. You may wiggle your toes and move your hip and knee. Dressings: You should keep your splint clean and dry. Do NOT get wet or dirty. If you have issues with your splint, please call the office at [phone] or the hospital after hours. Medications: - You should take Tylenol and Ibuprofen around the clock for baseline pain. - You have been prescribed a stronger narcotic for breakthrough pain. - You have Ondansetron (Zofran) for any recurrent nausea. - You should take a Baby Aspirin (81mg) twice a day for blood clot prevention. Follow-up: 2 weeks Stand Alone Forms: Anesthesia Discharge Inst[facility]el[facility], Naveed Braga ([facility]) Referrals: Anatoliy Valle MD [ [facility]] - Activity:: Activity as Tolerated Equipment/Supplies:: Crutches Diet:: As Tolerated Discharge Orders Discharge Orders: Discharge Order (Routine); Ordered 12/22/22 Ordered By: Anatoliy Valle DS: Summary Time Spent with Patient providing and/or coordinating discharge services: Less than 30 minutes Status at Discharge Functional status at discharge: uses cane/walker Overall status at discharge: patient is progressing back to baseline Mental Status: mental status grossly normal Speech and Movement: speech and movement normal Mood: congruent mood Affect: normal affect Exam Narrative Exam Narrative: Sitting up in hospital bed. No acute distress. Alert and orient x3. Evaluation of left lower extremity shows a splint intact. Her foot is cool. However, there is capillary fill less than 3 seconds. The splint was rewrapped in a slightly looser position. She is able to wiggle her toes and endorses sensation. Psych Mental Status: mental status grossly normal Speech and Movement: speech and movement normal Mood: congruent mood Affect: normal affect DS: Data Vitals/I&O Vitals and I&O: Vital Signs Temperature 36.8 C 12/22/22 09:31 Temperature Source Tympanic 12/22/22 09:31 Pulse 60 12/22/22 09:31 Pulse Rhythm Regular 12/21/22 22:25 Respiratory Rate 19 12/22/22 09:31 Respiratory Effort Normal, Non-Labored 12/21/22 22:25 Respiratory Depth Normal 12/21/22 22:25 Respiratory Pattern Normal 12/21/22 22:25 Blood Pressure 114/69 12/22/22 09:31 Pulse Oximetry 93 12/22/22 09:31 Respiratory End-tidal CO2 39 12/21/22 15:00 Oxygen Delivery Method Room Air 12/22/22 09:31 Oxygen Flow Rate 0 12/22/22 09:31 Pain Level 2 12/22/22 09:31 Comment two liters via NC applied 2/2 shallow resp 12/21/22 17:40 Intake & Output 12/21/22 12/21/22 12/22/22 11:59 23:59 11:59 Intake Total 1450 / 1450 700 / 700 Output Total 300 / 300 700 / 700 Balance 1150 / 1150 0 / 0 Weight 66.7 kg Intake: IV 1350 / 1350 700 / 700 Oral 100 / 100 Output: Urine 300 / 300 700 / 700 Emesis 0 / 0 Other: Urine Color Yellow Yellow Urine Appearance Clear Clear Emesis Description None Voiding Methods Bedpan PFSH All Active Problems Post-operative nausea and vomiting (Acute) Exostosis of left calcaneus (Acute) Strain of left peroneal muscle or tendon (Acute) Left ankle instability (Acute) Medical History Osteopenia Hyperlipidemia Tremor Acute cholecystitis due to biliary calculus GERD (gastroesophageal reflux disease) Biliary colic Cholelithiasis Surgical History Hx of cholecystectomy Hx of colonoscopy History of tubal ligation Social History Smoking/Tobacco Use Status: Never Smoking risk assessment performed?: Yes Alcohol Intake: never Drug use: Never Substance use type: does not use Housing: house Do you feel safe at home: Yes Do you feel safe in your relationship?: Yes Additional Social history: unable assess privately Time Spent with Patient Time Spent with Patient: <45 minutes Time was spent: ordering medications,tests, procedures, counseling the patient and care coordination
[2022-12-22] MEDS: Ketorolac 15 MG/ML VIAL IVP (10:13)
--- NOTE | 2022-12-22 10:17 | IN_ITS ---
PT Notes Visit Reasons: L peroneal tendon repair Date:?12/22/22 Referring Doctor: Anatoliy Valle MD MD Orders: S/P L foot ostectomy and peroneal tendon debridement, TDWB LLE Precautions:? TDWB LLE, standard Patient Profile/Admitting Diagnosis:???72 y o female POD 2, S/P L foot ostectomy and peroneal tendon debridement, post failure to conservative measure for chronic L ankle dysfunction. PMHX:All Active Problems Post-operative nausea and vomiting (Acute) Exostosis of left calcaneus (Acute) Strain of left peroneal muscle or tendon (Acute) Left ankle instability (Acute) Medical History Osteopenia Hyperlipidemia Tremor Acute cholecystitis due to biliary calculus GERD (gastroesophageal reflux disease) Biliary colic Cholelithiasis Surgical History Hx of cholecystectomy Hx of colonoscopy History of tubal ligation Social History/Home Situation:Lives in a private home with her . 5 steps to enter with unilateral rail. [facility], but has bedroom and bathroom on mail floor. Equipment Owned/DME: [employer] WC Subjective: Admitted post ortho surgery, due to poor pain med reaction. She was feeling very dizzy and vomiting last night. Feeling much better today, with use of tramadol for pain control. Objective: General Observation: Lying reclined in bed, with IV port L cubitol fossa, Telemetry pads applied, but not attached to monitor any longer. Mental Status:A&Ox3 Pain: 0/10 Vital Signs: Stable per nursing ROM: B UE's WNL B LE's WNL, with the exception of immobilized L ankle Strength: Grossly 5/5 B UE's and L LE, aside from immobilized L ankle which is deferred due to post op condition. Bed Mobility/Transfers: Bed mobility independent Supine to sit EOB (I), EOB to supine (I) STS close supervision with 2 axillary crutches and RW Stand to sit close supervision with 2 axillary crutches and RW Change of direction and stand <>toilet close supervision with RW Wash hands closer supervision Gait: NWB L LE with RW x 50 ft, crutches x 30 ft. Demonstrates improved safety with use of RW Balance: Static Sitting: Good Dynamic Sitting: Good Static Standing: Good with RW Dynamic Standing: Fair with RW Special Tests: Mobility Limitations Standardized Measure [facility]-PAC 6 clicks Basic Mobility Inpatient Short Form:29% dis ability Treatment: Gait training [id number]: Sequencing, AD training with use of RW with NWB status, employing AD, change of direction education, and use of stairs with crutch and TTWB L LE. CG throughout Therapeutic Procedures [id number] min: Skilled exercise prescription for ROM, strengthening, and flexibility specific to patients problem HEP education: Exercises - Quad Set - 2 x daily - 5 x weekly - 2 sets - 15 reps - 10 s hold - Supine Gluteal Sets - 2 x daily - 5 x weekly - 2 sets - 15 reps - 10s hold - Supine Heel Slide - 2 x daily - 5 x weekly - 2 sets - 15 reps - Seated Heel Slide - 2 x daily - 5 x weekly - 2 sets - 15 reps - Small Range Straight Leg Raise - 2 x daily - 5 x weekly - 2 sets - 15 reps - 10s hold - Seated Long Arc Quad - 2 x daily - 5 x weekly - 2 sets - 15 reps - 10s hold - Toe Spreading - 2 x daily - 5 x weekly - 2 sets - 15 reps Above added to HEP, patient provided with illustrated handout. Informed Consent/Education:? Patient was instructed in purpose of PT consult and plan of care. Agreeable to proceed with established PT POC to achieve personal goals. Assessment: Patient presents with clinical signs and symptoms consistent L LE mobility and gait deficits S/P ortho surgery, with admitting diagnoses of L foot ostectomy and peroneal tendon debridement, TDWB LLE POD 2 that have resulted in mobility limitations, generalized weakness, and overall ADL decline, as demonstrated by the following impairment level findings: TTDW L LE, immobilized L ankle, imbalance due to WB status Impairments are contributing to the following functional limitations: Gait dysfunction with dependence of RW, supervision with ambulation, transfers and stair navigation, and overall limited ADL and self care ability due to L LE protected TDWB Patient requires skilled PT intervention to achieve below goals to attend to functional limitation deficits, improve safety with functional attempts, and achieve achieve below goals. Patient is assessed as Low complexity based on the following: History: Per above social history and medical history Examination: TDWB, AD dependent, immobile L ankle, poor balance, poor self care and ADL abilities Presentation: Stable Decision Making:? Easy Plan of Care/Treatment Plan: Discharge dev with supervision. Requires use of RW for safe ambulation household distance, to prevent falls, vs. axillary crutches which she did not demonstrates stability with, to manage TDWB status of L LE. Axillary crutches required for stair ambulation to enter and exit home. 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 DISCHARGE RECOMMENDATIONS: Outpatient PT at proper stage of rehab. ? TREATMENT CODE(s): 45315, [id number] min, Gait training [id number] Treatment TIME: 60 min direct and total, 10:15-11:15 a.m.
[2022-12-22] MEDS: Normal Saline Flush 10 ML SYR IV (11:40)
--- NOTE | 2022-12-22 14:22 | NUR.NOTE ---
Nursing Note: Pt presenting concerns regarding yesterday's complication to hydromorphone and her prescribed hydrocodone-acetaminophen. Pharmacy contacted and advised that a provider needs to be notified. Dr. Valle contacted by charge nurse Zuleika who was informed that pt can go ahead with her prescription of hydrocodone-acetaminophen. Pain management discussed with pt re baseline pain management with ibuprofen & acetaminophen and breakthrough with hydromorphone-acetaminophen. Pt also educated on use of ondansetron (gloria re disintegrating tablets). Pt advised that if she has further concerns then she can call Dr. Valle's office.
--- NOTE | 2022-12-22 14:41 | PT.INTREAT ---
Date of service: 12/22/22 Time of Service: 12:06 PT Notes Visit Reasons: L peroneal tendon repair Inpatient Physical Therapy Treatment Note [facility] ?Date: 12/22/22 ?PRECAUTIONS: Fall, standard, activity as tolerated, TTWB LLE with AD ?SUBJECTIVE: Patient reports feeling ok, eager to eat lunch as she hasn't eaten since before surgery yesterday ?OBJECTIVE: Supine in bed, agreeable to therapy. ?PAIN: None reported ?VITALS: monitored by nursing staff ?BED MOBILITY/TRANSFERS? Rolling L/R: Independent Supine-sit: Independent ? Sit-supine: Independent ? Sit-stand: Independent ? Stand-sit: Independent ? Bed-Chair: SBA ? Chair-bed: SBA Gait Training ([id number]): Direct one-on-one instruction and skilled instruction in: [x] employing an assistive device [] modified weight-bearing status [x] movement sequencing [x] turning and movement with proper form [x] Provided verbal cues for equipment management and technique [x] Provided instruction in gait pattern [] Patient education regarding pacing and breathing techniques to maximize activity tolerance? GAIT?Assistive Device: FWW ?Weight bearing: TDWB LLE ?Assist: SBA ?Distance:? 75 feet ?Deviation: unremarkable ? ASSESSMENT:? Patient tolerated therapy well, no c/o increased pain, no LOB, no SOB. Returns to rest in bed and eat lunch. PLAN: Continue global strengthening per plan of care until patient is medically cleared for discharge. TREATMENT CODE/TIME: 10 minutes beginning at 12:06
== END 2022-12-22 14:20 | disposition home or self-care (01) ==
LOC: MS 17:29
PROVIDERS: Admitting Provider Student in an Organized Health Care Education/Training Program; PCP Family Medicine; Visit Provider Student in an Organized Health Care Education/Training Program
PROC: (CPT 28118; principal; 2022-12-21 13:00)
DX: M89.8X7 Other specified disorders of bone, ankle and foot (principal); K21.9 Gastro-esophageal reflux disease without esophagitis; E78.5 Hyperlipidemia, unspecified; M65.872 Other synovitis and tenosynovitis, left ankle and foot; S86.312A Strain of muscle(s) and tendon(s) of peroneal muscle group at lower leg level, left leg, initial encounter; X58.XXXA Exposure to other specified factors, initial encounter
CPT/HCPCS: 28118; 27658; 97110; 97116; 97161; NC; G0378; J0690; J1100; J1170; J1200; J1790; J1885; J2001; J2405; J2704; J8540

== ENCOUNTER → 2023-01-02 12:56 | Outpatient (BNVA) | payer MEDICARE, BC, SELFPAY | PROVIDERS: PCP Family Medicine; Referring Provider Family Medicine | DX: S86.312D Strain of muscle(s) and tendon(s) of peroneal muscle group at lower leg level, left leg, subsequent encounter (principal); X58.XXXD Exposure to other specified factors, subsequent encounter; M89.8X7 Other specified disorders of bone, ankle and foot ==

== ENCOUNTER → 2023-01-30 13:29 | Outpatient (BNVA) | payer MEDICARE, BC, SELFPAY | PROVIDERS: PCP Family Medicine; Referring Provider Family Medicine; Visit Provider Student in an Organized Health Care Education/Training Program | DX: Z47.89 Encounter for other orthopedic aftercare (principal); M89.8X7 Other specified disorders of bone, ankle and foot ==

== ENCOUNTER → 2023-02-23 15:47 | Outpatient (BNVA) | payer MEDICARE, BC, SELFPAY | PROVIDERS: PCP Family Medicine; Referring Provider Family Medicine; Visit Provider Physical Therapy Assistant | DX: Z12.11 Encounter for screening for malignant neoplasm of colon (principal) ==

== ENCOUNTER 2023-03-16 06:52 | Day surgery (SDC) | payer MEDICARE, BC, SELFPAY ==
--- NOTE | 2023-03-15 16:14 | W.PM.DSUDISC ---
Date of service: 03/16/23 Time of Service: 08:29 Discharge Plan Disposition Patient Disposition: Home Condition: Good Discharge Details Reason For Visit: Screening colonoscopy Attending Provider: Felice Reynolds Primary Care Provider: Eulalia Cortez Home Meds and New Rx's Prescriptions: Continued multivitamin Tablet 1 tab PO DAILY ascorbic acid (vitamin C) [Vitamin C] 500 mg capsule, extended release 500 mg PO DAILY zinc gluconate 50 mg tablet 50 mg PO DAILY Discontinued bisacodyl [Dulcolax (bisacodyl)] 5 mg tablet,delayed release (DR/EC) 5 mg PO ONCE Qty: 4 0RF Rx Instructions: Colonoscopy Bowel Prep- Per Instructions polyethylene glycol 3350 17 gram/dose powder 238 g PO ONCE Qty: 238 0RF Rx Instructions: Colonoscopy Bowel Prep- Per Instructions Discharge Instructions Instructions: Diverticulosis (GEN), Diverticulosis Diet (GEN) Additional Instructions: 1. If tolerated, consume a soft, low fiber diet for 1-2 days. 2[address] Do not drive, drink alcohol, operate machinery, make critical decisions, or do activities that require coordination or balance for 24 hours. 3. Because air was put into your colon during the procedure, expelling air from your rectum (passing gas or farting) is normal. 4. You may not have a bowel movement for 1-3 days because of the colonoscopy prep. This is normal. 5. Go directly to the emergency room if you notice any of the following: Develop chills (warm to touch), or if you have a thermometer and your temperature is above 101 Difficulty breathing or difficultly swallowing Persistent vomiting Severe abdominal pain, other than gas cramps Severe chest pain Black, tarry stools Any bleeding ? exceeding one tablespoon 6. Call your physician if the site where your intravenous was started becomes red, swollen, painful, and warm to touch. 7. Your physician has reviewed your pre-procedure medications. Please continue to take those medications as previously ordered. You will be given specific information/education regarding any changes to your medications before leaving. Activity:: Activity as Tolerated Diet:: As Tolerated Discharge Orders Discharge Orders: Discharge Order (Routine); Ordered 03/15/23 Ordered By: Felice Reynolds DS: Diagnosis Discharge Diagnosis (1) Screening for colorectal cancer: Status: Acute Asessment and Plan: Diverticulosis; otherwise negative screening colonoscopy.
--- NOTE | 2023-03-15 16:15 | COLE_ITS ---
Date of service: 03/16/23 Time of Service: 08:30 Colonoscopy Report Date of procedure: 03/16/23 Pre-op diagnosis general: Screening colonoscopy Post-op diagnosis procedure note: other (Diverticulosis) Procedure: Colonoscopy Surgeon: Felice Reynolds Anesthesia Type: General:No Airway Estimated blood loss (mL): 0 Pathology: none sent Complications: None Disposition: same day Indications: Diane is a 72-year-old woman who needs her next screening colonoscopy Prep: Miralax/Dulcolax Procedure Start Time: 08:10 Procedure End Time: 08:25 Retraction Time: 9 Findings: Diverticulosis Procedure Description: After the induction of monitored anesthetic care, and with the patient in left lateral decubitus position, I began by performing an external anorectal exam.? Perineum and skin were normal, as was the anal verge.? There was no evidence of external hemorrhoids.? Next, I performed a digital rectal exam.? I did not appreciate any abnormal findings.? Next, I advanced a colonoscope into the rectal vault.? I performed retroflexion.? This was normal.? Using insufflation, I then advanced the colonoscope beyond the rectal folds and into the sigmoid colon before advancing towards the cecum.? There is widemouth sigmoid diverticulosis.? The scope was noted to be in the cecum by identification of the ileocecal valve and appendiceal orifice.? I then began withdrawing the colonoscope using repeated irrigation as necessary for full evaluation of the colonic mucosa. ?Once the scope was withdrawn to the level of the rectum, great care was taken to examine portions of the rectal folds.? I did not see any signs of tumors, polyps, or any other abnormalities besides the diverticulosis. Finally, the scope was withdrawn and the patient was brought to the same-day surgery recovery unit as the anesthetic wore off. ?The findings and instructions were shared with the patient prior to discharge. [place] Bowel Prep [place] Bowel Prep Right Colon: 3 Left Colon: 3 Transverse Colon: 3 Total Score: 9
[2023-03-16 07:53] VITALS: BP 142/87; PULSE 81; RESP 16; TEMP 36.6; O2SAT 100
--- NOTE | 2023-03-16 07:56 | W.ANESPRE ---
General Info Date of Service Date Performed: 03/16/23 Height: 4 ft 10 in Weight: 66.7 kg Body Mass Index (BMI): 30.7 Surgical Procedure: Operation Date: 03/16/23 08:20 Proposed Procedure Side Surgeon yanira Reynolds MD Meds Allergies and Home Medications Allergies Allergy/AdvReac Type Severity Reaction Status Date / Time meperidine [From Demerol] Allergy Unknown Verified 03/16/23 07:49 hydromorphone AdvReac Intermediate Other (See Unverified 03/16/23 07:49 Comment) morphine AdvReac Mild Nausea Unverified 03/16/23 07:49 Home Medication Medication Instructions Recorded multivitamin 1 tab PO DAILY 12/05/22 ascorbic acid (vitamin C) 500 mg 500 mg PO DAILY 03/16/23 capsule,extended release (Vitamin C) zinc gluconate 50 mg tablet 50 mg PO DAILY 03/16/23 Current Visit Medications: Current Medications Generic Name Dose Route Start Last Admin Trade Name Freq PRN Reason Stop Dose Admin Hyoscyamine Sulfate 0.125 mg 03/15/23 16:16 Hyoscyamine 0.125 Mg Sl/Oral/Chew SL 04/14/23 16:15 DIRECTED PRN Ringer's Solution 1,000 mls @ 80 mls/hr 03/16/23 06:00 IV 03/16/23 23:59 [facility] IV Miscellaneous Supplies 1 each 03/16/23 06:00 Iv Access IV 03/16/23 23:59 DIRECTED KAM Ondansetron HCl 4 mg 03/15/23 16:16 Ondansetron 4 Mg/2 Ml Vial IVP 04/14/23 16:15 Q4H PRN PRN Nausea / Vomiting Sodium Chloride 0 ml 03/16/23 06:00 Normal Saline Flush 10 Ml Syr IV 03/16/23 23:59 PRN PRN Sodium Chloride 0 ml 03/16/23 06:00 Normal Saline 10 Ml Vial IJ 03/16/23 23:59 DIRECTED PRN Sterile Water 0 ml 03/16/23 06:00 Water,Injection,Sterile 10 Ml Vial IJ 03/16/23 23:59 DIRECTED PRN PFSH Active Problems Active Problems: Problem Status Onset Code Screening for colorectal cancer Z12.11, Z12.12 Post-operative nausea and vomiting R11.2, Z98.890 Exostosis of left calcaneus M89.8X7 Strain of left peroneal muscle or tendon S86.312A Left ankle instability M25.372 Medical History Medical History Osteopenia Hyperlipidemia Tremor Acute cholecystitis due to biliary calculus GERD (gastroesophageal reflux disease) Biliary colic Cholelithiasis Surgical History Surgical History Hx of cholecystectomy Hx of colonoscopy History of tubal ligation Tobacco Smoking/Tobacco Use Status: Never Alcohol Alcohol Intake: never Substance Use Substance use: Never Substance use type: does not use Vital Signs and Lab Results Lab Results Blood Type / Crossmatch: No Data to Display Complete Blood Count: No Data to Display Complete Metabolic Panel: No Data to Display Liver Function Panel: No Data to Display Coagulation Panel: No Data to Display Cardiac Panel: No Data to Display Arterial Blood Gas: No Data to Display Venous Blood Gas: No Data to Display Pancreas Panel: No Data to Display Thyroid Panel: No Data to Display Infectious Disease: No Data to Display Blood Cultures: No Data to Display Toxicology Panel: No Data to Display Imaging and Studies Imaging and Studies Study information below may be from another EMR and interpreted by another provider. Please see original notes in EMR for more complete details. EKG Summary: 07/17: sinus. Anesthesia Assessment and Plan Anesthesia History Personal History: PONV Family History: No Family History of Anesthesia Complications Exercise Tolerance Exercise Tolerance: Metabolic Equivalents>4 Pertinent Negatives Pertinent Negatives: No Symptoms of GERD (none since gallbladder removed), No Major Cardiovascular Symptoms or Complaints, No Major Pulmonary Symptoms or Complaints and No History of CVA/TIA Cardiac & Pulmonary Exam Cardiac Exam: Normal S1/S2 Heart Sounds Pulmonary Exam: Clear Bilateral Breath Sounds Implantable Cardiac Device Does patient have a Pacemaker or an ICD?: No Airway Exam Known Difficult Airway: No Mallampati Class: 2 Mouth Opening: Narrow (< 3cm) Thyromental Distance: Greater than 3 cm Neck Range of Motion: Full ROM Neck Circumference: Normal Teeth Condition: Normal Dentition ASA Classification ASA Score: ASA 2 Emergency Case?: No NPO Status NPO Status: NPO Clears >2 hours, Solids >8 hours Anesthesia Plan Resuscitation Status: Full Code Anesthesia Technique: General Anesthesia Airway Planned: Natural Airway Monitors Used: Standard Monitors
[2023-03-16 07:59] VITALS: BMI 30.7
[2023-03-16] MEDS: Lactated Ringers 1,000 ML 80 ML IV (08:00)
[2023-03-16 08:35] VITALS: BP 127/66; PULSE 68; RESP 16; TEMP 36.2; O2SAT 96
[2023-03-16 09:10] VITALS: BP 128/69; PULSE 63; RESP 16; TEMP 36.1; O2SAT 100
--- NOTE | 2023-03-16 09:19 | W.ANESPOSTOP ---
Postoperative Evaluation Date, Time and Location Date Performed: 03/16/23 Time Performed: 08:41 Patient Location: Day Surgery Unit Vital Signs Most Recent Imported Vital Signs: Most Recent Vital Signs Temp Pulse Resp BP Pulse Ox 36.1 C L 63 16 128/69 100 03/16/23 09:10 03/16/23 09:10 03/16/23 09:10 03/16/23 09:10 03/16/23 09:10 Pain Score Most Recent Pain Score: Most Recent Pain Score Pain Level 0 03/16/23 09:10 Assessment Mental Status: Awake (Alert & Oriented to Patient Baseline) Airway and Respiratory Function: Patent airway with normal (patient baseline) respiratory exam Cardiovascular Function: Hemodynamically Stable Hydration Status: Adequately Hydrated Nausea & Vomiting: No Nausea or Vomiting Pain: Pt. Denies Any Pain Peripheral Nerve Block: Patient did not receive a nerve block
== END 2023-03-16 09:25 | disposition home or self-care (01) ==
LOC: SUR 06:53
PROVIDERS: PCP Family Medicine; Visit Provider Surgery
PROC: 0DJD8ZZ Inspection of Lower Intestinal Tract, Via Natural or Artificial Opening Endoscopic (ICD-10-PCS; CPT 45378; principal; 2023-03-16 08:15)
DX: Z12.11 Encounter for screening for malignant neoplasm of colon (principal); K57.30 Diverticulosis of large intestine without perforation or abscess without bleeding
CPT/HCPCS: G0121; J2001; J2704

== ENCOUNTER → 2023-03-20 13:51 | Outpatient (BNVA) | payer MEDICARE, BC, SELFPAY | PROVIDERS: PCP Family Medicine; Referring Provider Family Medicine; Visit Provider Student in an Organized Health Care Education/Training Program | DX: Z47.89 Encounter for other orthopedic aftercare (principal); M89.8X7 Other specified disorders of bone, ankle and foot ==

== ENCOUNTER 2025-01-10 08:50 | Emergency (ER) | payer MEDICARE, BC, SELFPAY ==
[2025-01-10] VITALS (26 sets, daily range): BP systolic 130–180; BP diastolic 66–85; PULSE 68–100; RESP 16; TEMP 36.9–38.4; O2SAT 92–96
[2025-01-10 09:16] LABS: Glucose Negative (Negative)
--- NOTE | 2025-01-10 09:19 | ED.GENADUL_ITS ---
Discharge Plan Disposition Patient Disposition: Home Condition: Stable Discharge Details Clinical Impression: Diverticulitis Primary Care Provider: Eulalia Cortez ED Provider: Amee Burnett Home Meds and New Rx's Prescriptions: New amoxicillin-pot clavulanate 875-125 mg tablet 1 tab PO TID 5 Days Qty: 15 0RF No Action multivitamin Tablet 1 tab PO DAILY ascorbic acid (vitamin C) [Vitamin C] 500 mg capsule, extended release 500 mg PO DAILY zinc gluconate 50 mg tablet 50 mg PO DAILY Discharge Instructions Instructions: Diverticulitis (DC) Additional Instructions: You were seen in the emergency department today for evaluation of left lower quadrant abdominal discomfort and were found to have diverticulitis. In our department you had a full physical examination performed, and you had evidence of diverticulitis on your CT scan. Your laboratory studies were otherwise quite reassuring, though you do have a slight increase in your white blood cell count which is consistent with the infection that you are fighting. You received your first dose of antibiotics and the remainder were sent to your pharmacy. Please take all this medication until it is gone, even if you start to feel better. This antibiotic will also cover any bacteria that was found in your urine, you will be contacted if you need to make any changes. I recommend that for the next few days you follow a clear liquid diet, as your pain improves you can gradually reintegrate bland and low residue/fiber foods. Some people with diverticulitis find that they need to avoid excessive nuts and seeds as this can be a trigger food. When you are entirely healed your primary care provider will need to schedule you for repeat colonoscopy. Please follow-up with your primary care provider in the next few days to discuss this visit and any symptoms that change, worsen, or persist. Thank you for allowing us to be part of your care. HPI General Mode of arrival: ambulatory . Date/Time Provider Initiated Documentation: 01/10/25 08:52 . Limitations to Documentation: no limitations . Information obtained by: patient, family and old records reviewed . HPI Narrative: This is a 74-year-old female patient with a past medical history significant for diverticulosis, status postcholecystectomy, presenting for evaluation of left lower quadrant abdominal pain and diarrhea. The patient reports that she started to have diarrhea earlier this week, she often has this after taking Tylenol and ibuprofen, which she has been doing for a left-sided neck strain. She states that yesterday she developed some left lower quadrant abdominal tenderness. She has not taken any other medications in the outpatient environment, states that she avoids ibuprofen due to diarrhea. She has not noted any blood in her stool, when she urinates she feels reproduction of the lower abdominal pain. She has not felt any dysuria or burning. She reports that she felt warm overnight and is noted to have a low-grade fever on her triage vital signs here today. States that she has not had any nausea or vomiting but did have poor appetite this morning. Related Data Home Medications Medication Instructions Recorded Confirmed multivitamin 1 tab PO DAILY 12/05/2212/13 ascorbic acid (vitamin C) 500 mg 500 mg PO DAILY 03/1601/10/25 capsule,extended release (Vitamin C) zinc gluconate 50 mg tablet 50 mg PO DAILY 03/16/23 amoxicillin 875 mg-potassium 1 tab PO TID 5 days #15 t abs 01/10/25 clavulanate 125 mg tablet Previous Rx's Medication Instructions Recorded amoxicillin 875 mg-potassium 1 tab PO TID 5 days #15 t abs 01/10/25 clavulanate 125 mg tablet Allergies Allergy/AdvReac Type Severity Reaction Status Date / Time meperidine (From Demerol) Allergy Intermediate Nausea Verified 01/10/25 09:02 hydromorphone AdvReac Intermediate Other (See Verified 01/10/25 09:02 Comment) morphine AdvReac Mild Nausea Verified 01/10/25 09:02 General Stated Complaint: Abd Prob JOSÉ ANTONIO: 3 Exam Narrative Exam Narrative: Gen: Awake and alert, in no apparent distress HEENT: Non-icteric sclera Neck: Supple Lungs: No apparent respiratory distress, normal respiratory effort. CV: Appears well perfused, heart with borderline tachycardic rate but regular rhythm, strong distal pulses Abdomen: Non-distended, soft, tender to palpation in the left lower quadrant without rigidity, rebound, or guarding MSK: Moves 4 extremities without apparent limitation in ROM Skin: Visualized skin without rashes, cyanosis. Neuro: Normal Gait, no obvious focal deficits or facial asymmetry. Speaks in full, clear sentences. Psych: Appropriate for situation. Course Vital Signs Vital signs: Vital Signs Temperature 38.4 C H 01/10/25 08:52 Pulse 100 H 01/10/25 08:52 Respiratory Rate 16 01/10/25 08:52 Blood Pressure 180/73 H 01/10/25 08:52 Pulse Oximetry 94 01/10/25 08:52 Temperature 38.4 C H 01/10/25 09:03 Temperature Source Tympanic 01/10/25 09:03 Pulse 100 H 01/10/25 09:03 Respiratory Rate 16 01/10/25 09:03 Blood Pressure 180/73 H 01/10/25 09:03 Blood Pressure Position Sitting 01/10/25 09:03 Pulse Oximetry 94 01/10/25 09:03 Oxygen Delivery Method Room Air 01/10/25 09:03 Oxygen Flow Rate 0 01/10/25 09:03 Pain Level 7 01/10/25 09:03 Lab/Test Results Lab/Test Results: Laboratory Tests Range/Units 01/10/25 09:06 Urine Color (Yellow) Yellow Urine Clarity (Clear) Cloudy Urine pH (5-8) 5.5 Ur Specific [place] (1.005-1.025) 1.020 Urine Protein (Neg-Trace) mg/dL Negative Urine Ketones (Negative) mg/dL Negative Urine Blood (Negative) Trace-lysed H Urine Nitrite (Negative) Positive H Urine Bilirubin (Negative) Negative Urine Urobilinogen (Up to 0.2) mg/dL 0.2 Ur Leukocyte Esterase (Negative) Small H Urine Glucose (Negative) mg/dL Negative Medical Decision Making This is a 74-year-old female patient presenting for evaluation of left lower quadrant abdominal discomfort. My differential includes but is not limited to diverticulitis, UTI, pyelonephritis, nephrolithiasis. Certainly considered other abdominal pathologies including gastritis/PUD, gastroenteritis, pancreatitis, hepatitis, appendicitis, small bowel obstruction. Considered mesenteric ischemia, aortic pathology, though this is less concerning based on the patient's history and physical exam. We will provide the patient with a dose of intravenous Tylenol given her low- grade fever and pain. I will obtain labs to include CBC, CMP, magnesium, lipase, lactate, and obtain a CT abdomen pelvis with contrast to evaluate for abnormalities which might explain the patient's symptoms. Given the low oral intake today we will start patient on IV fluids. - I reviewed the patient's laboratory studies, which do show mild leukocytosis up to 14, no anemia or thrombocytopenia. Lactate is low, chemistry panel without electrolyte derangements or evidence of kidney dysfunction. The patient does have a very very slight elevation in her bilirubin to 1.2 and ALT to 61. Lipase is low. Urinalysis with positive nitrites, small leukocyte esterase and no significant pyuria though she does have many bacteria in her urine. This was sent for culture. CT scan reviewed by myself and does show an uncomplicated sigmoid diverticulitis without evidence of abscess or perforation. I started the patient on Augmentin, which reassuringly will also cover the most common nitrate producing urinary organisms appropriately. I counseled the patient on clear liquid diet, avoidance of excessive nuts and seeds, and follow-up with her primary care provider for repeat colonoscopy once she is well. A course of Augmentin was sent to her pharmacy. At this time, the patient has had a full medical evaluation and is safe for discharge to home. They are hemodynamically stable, ambulatory, and tolerating PO. They are understanding of the follow-up plan and return precautions. They left our facility without incident. Amee Burnett MD [facility] All Active Problems (Updated 01/10/25 @ 12:01 by Amee Burnett MD) Diverticulitis (Chronic) Screening for colorectal cancer (Acute) Post-operative nausea and vomiting (Acute) Exostosis of left calcaneus (Acute) S/P debridement with peroneal tendon repair: 12/21/2022 Strain of left peroneal muscle or tendon (Acute) Left ankle instability (Acute) Medical History (Updated 01/10/25 @ 12:01 by Amee Burnett MD) Osteopenia Hyperlipidemia Tremor Acute cholecystitis due to biliary calculus GERD (gastroesophageal reflux disease) Biliary colic Cholelithiasis Surgical History (Updated 03/17/23 @ 11:25 by Dorene Ayala) Hx of cholecystectomy (~03/2023) Hx of colonoscopy History of tubal ligation Social History Smoking/Tobacco Use Status: Never Smoking risk assessment performed?: Yes Alcohol Intake: never Drug use: Never Substance use type: does not use Housing: house Do you feel safe at home: Yes Do you feel safe in your relationship?: Yes
[2025-01-10 09:22] LABS: C & S Indicated? Yes; RBC Negative HPF (0-2)
[2025-01-10 09:35] LABS: Abs Immature Grans 0.06 10^3/uL (0.0-0.06); HCT 42.2 % (36.0-46.0); HGB 13.9 g/dL (11.2-15.7); Immature Grans % 0.4 %; MCH 30.8 pg (27.0-33.0); MCHC 32.9 % (32.0-36.0); MCV 94 fL (80-95); MPV 9.5 fL (8.0-11.0); Platelet Count 240 10^3/uL (130-400); RBC 4.51 10^6/uL (3.93-5.22); RDW 13.0 % (11.7-14.6); RDW-SD 44.6 fL; WBC 14.29 10^3/uL (4.4-10.8)
[2025-01-10] MEDS: ACETAMINOPHEN 1,000 MG/100 ML BAG 400 MG IVPB (09:36)
[2025-01-10] MEDS: Lactated Ringers 1,000 ML 1000 ML IV (09:36)
[2025-01-10 09:54] LABS: ALT 61 U/L (14-59); AST 34 U/L (15-37); Albumin 3.9 g/dL (3.4-5.0); Alkaline Phosphatase 128 U/L (46-116); Anion Gap 11.5 mmol/L (3-11); BUN 14 mg/dL (7-18); Bilirubin, Total 1.2 mg/dL (0.2-1.0); CO2 25.5 mmol/L (21.0-32.0); Calcium 9.1 mg/dL (8.5-10.1); Chloride 102 mmol/L (98-107); Glucose 114 mg/dL (74-106); Lipase 26 U/L (<78); Magnesium 1.8 mg/dL (1.8-2.4); Potassium 4.0 mmol/L (3.5-5.1); Sodium 139 mmol/L (136-145); Total Protein 7.8 g/dL (6.4-8.2)
[2025-01-10] MEDS: Normal Saline - Diluent 50 ML VIAL IJ (09:58)
[2025-01-10] MEDS: Normal Saline Flush 10 ML SYR IVP (09:58)
[2025-01-10] MEDS: Omnipaque 350 MG/ML 500 ML BTL-Imaging package IJ (09:58)
--- NOTE | 2025-01-10 10:25 | DI.CT_ITS ---
Exam(s) CT ABDOMEN PELVIS W EXAM: CT ABDOMEN PELVIS W CLINICAL HISTORY: LLQ abd pain, eval diverticulitis. TECHNIQUE: Imaging Protocol: Axial computed tomography images with coronal and sagittal reformatted images were created and reviewed CONTRAST MATERIAL: Intravenous: Omnipaque-350 100cc Oral: None COMPARISON: No exams were available for comparison FINDINGS: VISUALIZED LUNG BASES: No nodules nor pleural effusions evident. ABDOMEN: There is no ascites. LIVER: There are no focal hepatic lesions evident. No dilated intrahepatic ducts. GALLBLADDER/BILIARY: The gallbladder surgically absent. CBD is not dilated. PANCREAS: No evidence of pancreatic mass nor dilatation of the pancreatic duct. SPLEEN: Spleen size normal. There is a solitary small hypodensity in the mid spleen measuring 6 mm. This is benign appearance, either cyst or small hemangioma PE the splenic and portal veins are patent. ADRENALS: There are no significant adrenal masses. KIDNEYS:There parapelvic cysts in both kidneys versus is element of UPJ obstruction. The ureter is below the UPJ levels are not dilated. There is a solitary small nonobstructive 3 millimeter calculus in the right kidney. There are no calculi in the nondilated ureters nor within the urinary bladder lumen. No solid renal masses.. ABDOMINAL AORTA: Abdominal aorta is not enlarged. Retroaortic left renal vein noted. LYMPH NODES:There is no retroperitoneal nor paraaortic adenopathy. ABDOMINAL WALL: No evidence of significant anterior abdominal wall nor inguinal hernia. GI: No evidence of small-bowel obstruction. No appendicitis. There is diverticulosis in the sigmoid and there is evidence of acute diverticulitis with the culprit diverticulum in the upper sigmoid. There is significant surrounding streaking in the mesentery. No free air. No abscess at this time and there is no free fluid in the dependent aspect of the pelvis. PELVIS: LYMPH NODES: There is no intrapelvic nor inguinal adenopathy. REPRODUCTIVE: Uterus size age-appropriate. Bilateral tubal ligation clips are noted. No adnexal masses. URINARY BLADDER: No calculi nor obvious masses evident OSSEOUS: No fractures. No significant osseous lesions. IMPRESSION: 1. There is acute diverticulitis of the sigmoid. No evidence of perforation or abscess at this time. 2. Other from intense above. Report called by myself to ER physician 01/10/2025 at 11:50 a.m. RADIATION DOSE DELIVERED: 590.22mGy.cm Total DLP DATA REPOSITORY: All CT scans at this facility are submitted to the National Radiology Data Registry (NRDR) Dose Index Registry (DIR) with the [employer] ([employer]). RADIATION OPTIMIZATION: All CT scans at this facility use at least one of these dose optimization techniques: automated exposure control; mA and/or kV adjustment per patient size (includes targeted exams where dose is matched to clinical indication); or iterative reconstruction.
[2025-01-10] MEDS: Amoxicillin 875/Clav. 125 TAB PO (12:04)
[2025-01-10] MEDS: Amox. 875/Clav. 125, 2 TABS/BTL 1 TAB PO (12:05)
--- NOTE | 2025-01-13 09:21 | NUR.NOTE ---
Access chart to determine antibiotic on discharge for urine culture. Result given to provider. Nursing Note:
== END 2025-01-10 12:21 | disposition home or self-care (01) ==
PROVIDERS: Emergency Provider Emergency Medicine; PCP Family Medicine
DX: K57.32 Diverticulitis of large intestine without perforation or abscess without bleeding (principal)
CPT/HCPCS: 99284; 99285; 36415; 96374; 80053; 83690; 87077; 96361; 74177; 81003; 81015; 83605; 83735; 85025; 87086; 87186; J0131